=== PATIENT | male | born 1940 | race Caucasian/White ===

== ENCOUNTER 2023-05-14 16:10 | Outpatient (CLI) | payer MEDICARE, OTHER, SELFPAY ==
--- NOTE | ~2023-05-14 | XR_ITS ---
EXAMINATION: XR hip BI wo pelvis DATE: 05/14/2023 16:37 INDICATION: Bilateral hip pain TECHNIQUE: Two views of each hip were obtained. COMPARISON: None. FINDINGS: Bone alignment is normal. There is no fracture. There is moderate osteoarthritis of the hip s. Phleboliths are noted in the pelvis. IMPRESSION: 1. Osteoarthritis without acute osseous abnormality. Reviewed, dictated and finalized at location F.
== END 2023-05-14 16:11 | disposition home or self-care (01) ==
LOC: CHSIMG 16:14
PROVIDERS: PCP Internal Medicine; Visit Provider Internal Medicine
DX: M16.0 Bilateral primary osteoarthritis of hip (principal)
CPT/HCPCS: 73521

== ENCOUNTER 2023-05-19 13:20 | Outpatient (CLI) | payer MEDICARE, OTHER, SELFPAY ==
--- NOTE | ~2023-05-19 | XR_ITS ---
EXAMINATION: XR lg joint inject/asp w image DATE: 05/19/2023 14:27 INDICATION: Left hip pain TECHNIQUE: A time-out was performed to verify the patient's name, date of , and procedure to b e performed. The procedure including the risks, benefits, and alternatives was discussed with the pat ient. Risks discussed included bleeding and infection. The patient understood the risks and agreed to proceed. The skin overlying the left hip joint was prepped and draped in usual sterile fashion. An esthetic was administered with 1% lidocaine subcutaneously. A 22 G needle was advanced under fluoros copic guidance into the joint. Injection of 1 mL of Omnipaque 240 confirmed intra-articular position of the needle. Subsequently, injectate consisting of 5 mm a 3:1:1 mixture of 1% lidocaine: 40 mg/mL Kenalog and 4 mg/mL dexamethasone for a total dosage of 40 mg Kenalog and 4 mg dexamethasone was ins tilled. Washout of contrast was seen confirming intra-articular administration. The needle was remove d and the entry site was cleaned and dressed. There were no immediate complications. Fluoroscopy exp osure time was 0.1 minutes. The total number of images was 2. Total DAP was 0.614 Gycm^2 FINDINGS: Real-time fluoroscopy demonstrates the needle in the left hip joint. Patient's pain prior t o procedure:04/28. Patient's pain following the procedure: 02/26. IMPRESSION: 1. Successful left hip joint injection of local anesthetic and steroid with minimal decrease in the p atient's presenting pain. Reviewed, dictated and finalized at location A. IMPRESSION: 1. Successful left hip joint injection of local anesthetic and steroid with min imal decrease in the patient's presenting pain.
== END 2023-05-19 13:21 | disposition home or self-care (01) ==
LOC: ANHIMG 13:22
PROVIDERS: PCP Internal Medicine; Visit Provider Internal Medicine
DX: M25.552 Pain in left hip (principal)
CPT/HCPCS: 20610; 77002; J1100; J3301; Q9966

== ENCOUNTER 2023-06-30 15:46 | Outpatient (CLI) | payer MEDICARE, OTHER, SELFPAY ==
--- NOTE | ~2023-06-30 | XR_ITS ---
EXAM: XR knee LT 3V DATE: 06/30/2023 16:30 HISTORY: left knee pain FOR AWHILE / NO TRAUMA . COMPARISON: None available. FINDINGS: Decreased mineralization. No fracture or dislocation. No lytic or blastic lesion. Moderate medial joint space narrowing. Mild tricompartmental osteophytosis. Quadriceps and patellar tendon en thesopathy. No erosion or periosteal change. Vascular calcifications. IMPRESSION: Tricompartmental left knee osteoarthritis, moderate in the medial compartment. Reviewed, dictated and finalized at location K. ATER IMPRESSION: Tricompartmental left knee osteoarthritis, moderate in the medial c ompartment.
== END 2023-06-30 15:47 | disposition home or self-care (01) ==
LOC: CHSIMG 15:50
PROVIDERS: PCP Internal Medicine; Visit Provider Internal Medicine
DX: M17.12 Unilateral primary osteoarthritis, left knee (principal); M25.562 Pain in left knee; M25.552 Pain in left hip
CPT/HCPCS: 73562

== ENCOUNTER 2023-07-03 16:03 | Emergency (ER) | payer MEDICARE, OTHER, SELFPAY ==
[2023-07-03] VITALS (22 sets, daily range): BP systolic 134–171; BP diastolic 41–73; PULSE 33–48; RESP 13–20; TEMP 37.1; O2SAT 90–96
--- NOTE | ~2023-07-03 | XR_ITS ---
EXAMINATION: XR chest 1V portable DATE: 07/03/2023 16:52 INDICATION: Bradycardia. Lightheadedness. TECHNIQUE: A single frontal view of the chest was obtained. COMPARISON: None. FINDINGS: There is no pneumonia, pleural effusion, or pneumothorax. Cardiomegaly is noted. IMPRESSION: 1. Cardiomegaly. Reviewed, dictated and finalized at location A. E OPTIC CABLE SPLICER IMPRESSION: 1. Cardiomegaly.
[2023-07-03] MEDS: ATROPINE SULFATE 1 MG/10 ML SYRINGE IV PUSH ×3 (16:18→16:50)
--- NOTE | 2023-07-03 16:24 | ECG_ITS ---
Measurements Intervals [place] Rate: 35 P: NC: 0 QRS: -35 QRSD: 150 T: 88 QT: 546 QTc: 422 Interpretive Statements SINUS RHYTHM WITH COMPLETE HEART BLOCK LEFT AXIS DEVIATION [QRS AXIS < -30] INTRAVENTRICULAR CONDUCTION DELAY [130+ ms QRS DURATION] LEFT VENTRICULAR HYPERTROPHY ABNORMAL ECG WARNING: DATA QUALITY MAY AFFECT INTERPRETATION NO PREVIOUS ECG AVAILABLE FOR COMPARISON Electronically Signed On 07-04-2023 7:45:50 MANAGER TECHNICAL SALES by Mike Bradford M.D.
--- NOTE | 2023-07-03 16:29 | ED.ARRPALP ---
HPI - Arrhythmia/Palpitations General Chief Complaint: Arrhythmia/Palpitations Stated Complaint: low heart rate Time Seen by Provider: 07/03/23 16:24 Source: patient Related Data Home Medications Medication Instructions Recorded Confirmed carvedilol 3.125 mg tablet 3.125 mg PO BID 07/03/23 07/03/23 losartan 100 1 tablet PO DAILY 07/03/23 07/03/23 mg-hydrochlorothiazide 12.5 mg tablet lovastatin 40 mg tablet 40 mg PO DAILY 07/03/23 07/03/23 mirabegron 25 mg tablet,extended 25 mg PO DAILY 07/03/23 07/03/23 release 24 hr (Myrbetriq) Allergies Allergy/AdvReac Type Severity Reaction Status Date / Time No Known Allergies Allergy Verified 07/03/23 16:32 Course Reevaluation(s) Reevaluation #1: Patient's HR was in the low 30s, he was given in around 10 min increments of atropine in 1mg dosage for a total of 3mg, and had no change. EKG showed afib w/slow ventricular response, intraventricular conduction delay, prob lateral myocardial infarction age indeterminate. Date: 07/03/23 Time: 16:30 Reevaluation #2: Dopamine was prepped in case patient's HR was to decline any further. Called [facility] and awaited for their response.r Date: 07/03/23 Time: 16:40 Reevaluation #3: Spoke to summer law associate Dr. Bradford about patient about treatment he said to wait on the dopamine and keep patient in bed and transfer to [facility] for admitting and further treatment. Date: 07/03/23 Time: 17:00 Additional Reevaluation(s): Patient's HR did decline to 29 started dopamine drip at 5mcg/kg/min. HR returned to upper 30s on the dopamine. Patient was stable and ready for transfer. Kept dopamine drip at initial starting dosage Vital Signs Vital signs: Vital Signs Temperature 98.7 F 07/03/23 16:05 Pulse Rate 36 L 07/03/23 16:05 Respiratory Rate 20 07/03/23 16:05 Pulse Oximetry 95 07/03/23 16:05 Oxygen Delivery Room Air 07/03/23 16:05 Temperature 98.7 F 07/03/23 16:05 Pulse Rate 38 L 07/03/23 18:30 Respiratory Rate 20 07/03/23 18:45 Blood Pressure 154/50 H 07/03/23 18:45 Pulse Oximetry 92 07/03/23 18:45 Oxygen Delivery Room Air 07/03/23 18:45 Transfer Transfered to: [place] Transportation: [facility] Transfer rationale: Bradycardia Accepting physician: Dr. Kellogg Transfer comments: Continue on IV dopamine drip. Per cardiology no transcutaneous pacing. MDM - Arrhythmia/Palpitations Lab Data 07/03/23 16:24 07/03/23 16:24 Labs: Lab Results 07/03/23 Range/Units 16:24 WBC 9.8 (4.8-10.8) K/mm3 RBC 4.00 L (4.70-6.10) M/mm3 Hgb 11.9 L (12.4-15.3) g/dL Hct 36.8 L (37.0-46.0) % MCV 92.0 (78.0-102.0) fL MCH 29.8 (27.0-31.0) pg MCHC 32.3 (32.0-36.0) g/dL RDW 12.8 (11.6-14.4) % Plt Count 208 (150-420) K/mm3 MPV 10.5 (8.7-11.0) fl Immature Gran % (Auto) 0.7 H (0.0-0.0) % Neut % (Auto) 77.8 H (50.0-70.0) % Lymph % (Auto) 12.9 L (18.0-42.0) % Hardeman % (Auto) 7.1 (2.0-11.0) % Eos % (Auto) 1.2 (1.0-6.0) % Baso % (Auto) 0.3 (0.0-1.0) % Lymph # (Auto) 1.27 (1.10-4.50) K/mm3 Hardeman # (Auto) 0.70 (0.10-0.90) K/mm3 Eos # (Auto) 0.12 (0.02-0.50) K/mm3 Baso # (Auto) 0.03 (0.00-0.10) K/mm3 Abs Immat Gran (auto) 0.07 H (0.00-0.00) K/mm3 Absolute Neuts (auto) 7.6 H (1.7-7.2) K/mm3 Absolute Nucleated RBC 0.00 (0.00-0.00) K/mm3 Nucleated RBC % 0.0 (0-0.0) % PT 10.6 (9.50-12.10) Seconds INR 1.0 APTT 25.8 (23.90-30.70) SEC D-Dimer 0.88 H* (0.19-0.50) mg/L Sodium 131 L (136-145) mmol/L Potassium 4.6 (3.5-5.1) mmol/L Chloride 96 L (98-108) mmol/L Carbon Dioxide 30 (21-32) mmol/L Anion Gap 5 L (8-16) mmol/L BUN 43 H (7-18) mg/dL Creatinine 1.52 H (0.70-1.30) mg/dL Estim Creat Clear Calc 37 ml/min Estimated GFR 44 L (59 - ) Glucose 203 H (70-99) mg/dL Calculated Osmolality 288 (285-295) mOsm/kg Calcium 9.0 (8.5-10.1) mg/dL Total Bilirubin 0.4 (0.00-1.00
[2023-07-03 16:33] LABS: Basophils Absolute Auto 0.03 K/mm3 (0.00-0.10); Basophils Percent Auto 0.3 % (0.0-1.0); Eosinophils Absolute Auto 0.12 K/mm3 (0.02-0.50); Eosinophils Percent Auto 1.2 % (1.0-6.0); Hematocrit 36.8 % (37.0-46.0); Hemoglobin 11.9 g/dL (12.4-15.3); Immature Granulocyte Absolute 0.07 K/mm3 (0.00-0.00); Immature Granulocyte Percent A 0.7 % (0.0-0.0); Lymphocytes Absolute Auto 1.27 K/mm3 (1.10-4.50); Lymphocytes Percent Auto 12.9 % (18.0-42.0); Mean Corpuscular HGB Conc 32.3 g/dL (32.0-36.0); Mean Corpuscular Hemoglobin 29.8 pg (27.0-31.0); Mean Platelet Volume 10.5 fl (8.7-11.0); Monocytes Percent Auto 7.1 % (2.0-11.0); Neutrophils Absolute Auto 7.6 K/mm3 (1.7-7.2); Neutrophils Percent Auto 77.8 % (50.0-70.0); Platelet Count Result 208 K/mm3 (150-420); Red Cell Distribution Width 12.8 % (11.6-14.4); White Blood Count 9.8 K/mm3 (4.8-10.8)
[2023-07-03 16:45] LABS: Partial Thromboplastin Time 25.8 SEC (23.90-30.70); Prothrombin Time 10.6 Seconds (9.50-12.10)
[2023-07-03 16:46] LABS: D Dimer 0.88 mg/L (0.19-0.50)
[2023-07-03 16:54] LABS: Alanine Aminotransferase 33 U/L (16-63); Albumin Level 3.5 g/dL (3.4-5.0); Alkaline Phosphatase 73 U/L (46-116); Anion Gap 5 mmol/L (8-16); Aspartate Amino Transferase 17 U/L (15-37); Bilirubin,Total 0.4 mg/dL (0.00-1.00); Blood Urea Nitrogen 43 mg/dL (7-18); Carbon Dioxide 30 mmol/L (21-32); Chloride 96 mmol/L (98-108); Estimated CRCL calculation 37 ml/min; Estimated Glomerular Filt Rate 44; Glucose 203 mg/dL (70-99); NT Pro B Type Natriuretic Pept 866 pg/mL (0-450); Osmolality Calculated 288 mOsm/kg (285-295); Potassium 4.6 mmol/L (3.5-5.1); Sodium 131 mmol/L (136-145); Total Protein 6.5 g/dL (6.4-8.2); Troponin I 22.6 ng/L (0.00-60.4)
[2023-07-03] MEDS: DOPamine 400 MG/D5W 250 ML 400 MG/250 ML BAG 16.88 MG IV CONT (17:18)
--- NOTE | 2023-07-03 18:49 | PC.NURSE ---
[id number] attempted to call report to [facility]u [facility]. awaiting call back. pt resting per cot, no complaints voiced. call najera in reach
== END 2023-07-03 19:29 | disposition short-term general hospital (02) ==
PROVIDERS: Emergency Provider Family Medicine; PCP Internal Medicine
DX: I48.91 Unspecified atrial fibrillation (principal); R00.1 Bradycardia, unspecified
CPT/HCPCS: 36415; 71045; 80053; 83880; 84484; 85025; 85380; 85610; 85730; 93005; 96365; 96366; 96375; 96376; 99285; J0461; J1265

== ENCOUNTER 2023-07-03 20:52 | Inpatient (IN) | payer MEDICARE, OTHER, SELFPAY ==
--- NOTE | ~2023-07-03 | XR_ITS ---
EXAMINATION: XR chest 2V DATE: 07/07/2023 12:49 INDICATION: 24 hours postpacemaker insertion TECHNIQUE: PA and lateral views of the chest are obtained. COMPARISON: 07/06/2023 FINDINGS: The lungs are free of acute opacities. No pleural effusion or pneumothorax. Cardiomegaly is noted. There are bridging osteophytes at multiple levels in the spine, consistent with diffuse idiop athic skeletal hyperostosis (DISH). A dual-lead cardiac pacemaker of the left chest wall ends with le ads in expected locations. IMPRESSION: 1. No acute cardiopulmonary abnormality. 2. Cardiomegaly. Reviewed, dictated and finalized at location L. [employer]
--- NOTE | ~2023-07-03 | US_ITS ---
US renal BI 07/05/2023 12:35 Procedure: Realtime transabdominal ultrasound of the kidneys and bladder. Indication: Renal failure Comparison: No prior studies for comparison. Findings: Renal echotexture is normal bilaterally without hydronephrosis, or renal calculus. There is a hypoechoic mass measuring 1.9 cm and the left kidney which may represent a cyst, although there ar e low level internal echoes. Correlation with CT or MRI without and with contrast recommended. The ri ght kidney measures 10.6 cm and left kidney measures 11.1 cm. Bladder is unremarkable. Impression: 1: Hypoechoic 1.9 cm left renal mass. Correlation with CT or MRI without and with contrast recommende d. Reviewed, dictated and finalized at location A. T TENDER Impression: 1: Hypoechoic 1.9 cm left renal mass. Correlation with CT or MRI without and wi th contrast recommended.
--- NOTE | ~2023-07-03 | XR_ITS ---
EXAMINATION: XR chest 1V portable INDICATION: Pacemaker insertion TECHNIQUE: Portable AP chest at 1250 hours COMPARISON: 07/03/2023 FINDINGS: There is been interval insertion of a dual lead pacemaker of the left chest wall which ends with its leads in expected position. No pneumothorax is identified cardiomegaly is noted. The lungs are free of acute opacities. There is no pleural effusion. IMPRESSION: 1. Dual-lead left pacemaker insertion. 2. Cardiomegaly. Reviewed, dictated and finalized at location B. ERIOLOGIST SOIL
--- NOTE | 2023-07-03 19:54 | PC.NURSE ---
This patient, Tanvir Singh, was admitted to Intensive Care Unit-3. Patient/family oriented to hospital policies and general routines including ID bracelet, bed and alarms, visiting hours, pain management, procedures, bathroom and other care routines, personal items, smoking policy, room service/diet, and visiting hours. Information on how to activate the [place] Team has been discussed. Patient/Family are encouraged to report perceived risks to care and to ask questions if they do not understand what they are told or what they should do.
[2023-07-03 20:00] VITALS: BP 109/42; PULSE 37; PULSE 77; RESP 32; TEMP 36.6; O2SAT 94
[2023-07-03 20:05] VITALS: BMI 29.0
--- NOTE | 2023-07-03 20:07 | ECG_ITS ---
Measurements Intervals [place] Rate: 34 P: 60 CO: 248 QRS: 45 QRSD: 152 T: 99 QT: 614 QTc: 468 Interpretive Statements SINUS BRADYCARDIA WITH SECOND-DEGREE AV BLOCK MOBITZ TYPE 2 LEFT BUNDLE BRANCH BLOCK [120+ ms QRS DURATION, 80+ ms Q/S IN V1/V2, 85+ ms R IN I/aVL/V5/V6] ABNORMAL ECG COMPARED TO ECG 07/03/2023 16:33:55 PREVIOUS ECG WAS THIRD-DEGREE AV BLOCK Electronically Signed On 07-04-2023 7:37:05 TEST FACILITY ENGINEER by Mike Bradford M.D.
--- NOTE | 2023-07-03 21:53 | PM.IMHP ---
H&P: HPI History of Present Illness Date/Time: 07/03/23 20:30 Chief Complaint: Slow heart rate Narrative: 83-year-old male with past medical history of essential hypertension, urge urinary incontinence and hyperlipidemia who presented to the ER at [place] with bradycardia. The patient reports that his primary care doctor started him on Coreg a. On review of external med rec in looks like the patient was started on Coreg in November. He quit taking the medication shortly thereafter when he had a syncopal episode. He stated that he was started on the medication by his primary care physician due to his heart rate being irregular. He had been checking his blood pressure on his blood pressure cuff and his heart rate was low. When he followed up with his primary care physician in March is primary care physician cut his Coreg in half to 3.125 mg. Patient went back to taking the Coreg and has been taking it twice daily since then. Since he was restarted on the medication he has been having increased weakness. He reported that he used to work out on his exercise bike to the equivalent of up to 5 miles at a time. He never had any shortness of breath or chest pain with this activity. But he started having hip pain after his fall and this was followed by knee pain and subsequently has not been able to ride his bike since then. He reports that the hip pain is more in his area of his ischial tuberosity. He the outpatient x-rays which demonstrated out the or arthritis. He was started on tramadol for the pain but has had some associated constipation. He denies any other changes in his medications. He denies any orthopnea, lower extremity swelling or paroxysmal nocturnal dyspnea. He has not had any cough or congestion or chest heaviness. Today he checked his blood pressures in notice heart rate was in the 30s. He called his friend who has a history of heart problems and requested that he can not drive him to the ER. On arrival to the ER at [place] the patient's heart rate was in the low 30s. He was given 3 doses of atropine with no change in his heart rate. The ER provider felt the patient's EKG was consistent with AFib with a slowed ventricular response but on my review of the EKG is his is more consistent with a third-degree heart block. The patient was started on dopamine at the outside hospital with improvement in his heart rate to low 30s. Patient was otherwise asymptomatic. He arrived to our facility on the dopamine in his heart rate was ranging between 30 and 42. His rhythm was flipping between third-degree block and a Mobitz type 2. Review of Systems Review of Systems: 12 systems were reviewed with pertinent positives and negatives per HPI. Except as documented in the HPI, all other systems were reviewed and are negative. [facility] Past Medical History Medical History (Updated 07/04/23 @ 05:41 by Xuan Delarosa DO) Borderline diabetes mellitus A1c has never been above 6.5 BPH (benign prostatic hyperplasia) Essential hypertension Hyperlipidemia Urge urinary incontinence Surgical History Surgical History (Updated 07/03/23 @ 21:58 by Xuan Delarosa DO) History of appendectomy As a child History of colonoscopy (08/2016) History of umbilical hernia repair Family History Family History Father Acute myocardial infarction Social History Social History (Updated 07/04/23 @ 05:32 by Xuan Delarosa DO) Social History: [place]. [place]. He and his raised 2 sons and a daughter. 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 He retired from [employer]. He cares for a feral cat at his home. Code status: Full code Surrogate decision maker: Macy Prather Smoking status: Never smoker Alcohol intake: current Alcohol use details: He occasionally drinks alcoh
[2023-07-03 22:00] VITALS: BP 104/42; PULSE 42; RESP 17; O2SAT 95
[2023-07-03 22:05] VITALS: BP 138/46; PULSE 34
[2023-07-03] MEDS: DOPamine 400 MG/D5W 250 ML 400 MG/250 ML BAG 18.19 MG IV CONT (22:05)
[2023-07-04] VITALS (18 sets, daily range): BP systolic 117–165; BP diastolic 44–84; PULSE 33–45; RESP 15–21; TEMP 36–36.7; O2SAT 93–98
--- NOTE | 2023-07-04 | ECHO_ITS ---
Patient Info Name: Tanvir Singh Age: 83 years : 1940 Gender: Male Ht: 72 in Wt: 210 lbs BSA: 2.22 m2 HR: 38 bpm BP: 117 / 45 mmHg Heart Rhythm: Sinus Rhythm Technical Quality: Fair Exam Date: 07/04/2023 9:48 AM Exam Location: Echo Lab Exam Room: ICU3 Patient Status: Inpatient Admit Date: 07/03/2023 Staff Ordering Physician: Xuan Delarosa DO Research Geneticist: Kate Melo RDCS Attending Provider: Jose Swan MD Referring Physician: Isaura BLANCAS; Exam Type: CA echo doppler color flow Study Info Indications I45.5 - Other specified heart block Complete two-dimensional, color flow and Doppler transthoracic echocardiogram is performed. Summary 1. Complete two-dimensional, color flow and Doppler transthoracic echocardiogram is performed. 2. Normal left ventricular and right ventricular size and systolic function. 3. Small amount of mitral and tricuspid valve regurgitation. 4. Complete heart block/high-grade AV block noted. Left Ventricle Left ventricular chamber dimension is normal. Left ventricular systolic function is normal, estimated at 65-70%. The left ventricular diastolic function is grade I diastolic dysfunction. Right Ventricle Right ventricular chamber dimension is normal. Left Atria Left atrial chamber dimension is mildly enlarged. Right Atria Right atrial chamber dimension is normal. Aortic Valve The aortic valve is normal. Pulmonic Valve The pulmonic valve is normal. Mitral Valve The mitral valve has normal leaflets. There is trace mitral valve regurgitation. Tricuspid Valve The tricuspid valve leaflets are normal. There is mild tricuspid valve regurgitation. Pericardium/Pleural The pericardium appears normal. Aorta The aortic root size at the sinus of Valsalva is normal. Left Ventricular Outflow Tract Name Value Normal LVOT 2D LVOT Diameter 2.1 cm LVOT Doppler LVOT Peak Gradient 8 mmHg LVOT Mean Gradient 5 mmHg LVOT VTI 32 cm LVOT VTI/AV VTI Ratio 0.8 LVOT Stroke Volume 115 ml LVOT CO 21.4 l/min LVOT CI 9.7 l/min/m2 Pulmonic Valve Name Value Normal RVOT Doppler RVOT Peak Gradient 4 mmHg PV Doppler PV Peak Gradient 7 mmHg Mitral Valve Name Value Normal MV Doppler MV Decel Estill 197 cm/s2 MV PHT 107 ms MV Area (PHT) 2.1 cm
[2023-07-04 04:37] LABS: Magnesium 2.3 mg/dL (1.6-2.3)
[2023-07-04 05:56] LABS: Thyroid Stimulating Hormone Reflex 0.457 uIU/mL (0.465-4.68)
[2023-07-04] MEDS: DOPamine 400 MG/D5W 250 ML 400 MG/250 ML BAG 18.19 MG IV CONT ×2 (06:15→20:01)
[2023-07-04 06:17] LABS: Hemoglobin A1C 6.9 % (<5.7)
[2023-07-04 06:36] LABS: Anion Gap 10 mmol/L (8-16); Blood Urea Nitrogen 51 mg/dL (9-20); Calcium 9.5 mg/dL (8.4-10.2); Carbon Dioxide 25 mmol/L (22-30); Chloride 98 mmol/L (98-107); Estimated CRCL calculation 38 ml/min; Estimated Glomerular Filt Rate 45; Glucose 155 mg/dL (65-110); Potassium 4.4 mmol/L (3.4-5.0); Sodium 133 mmol/L (137-145)
[2023-07-04 06:43] LABS: Hematocrit 38.3 % (42.0-52.0); Hemoglobin 12.6 g/dL (14.0-18.0); Mean Corpuscular HGB Conc 32.9 g/dl (32-36); Mean Corpuscular Hemoglobin 29.5 pg (26-34); Mean Corpuscular Volume 89.7 fl (80-100); Platelet Count Result 213 k/mm3 (150-375); Red Blood Count 4.27 M/mm3 (4.6-6.20); Red Cell Distribution Width 13.1 % (11.5-14.5); White Blood Count 11.6 K/mm3 (4.5-10.0)
--- NOTE | 2023-07-04 08:35 | PM.CNCAR ---
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 He is unknown to me prior to this encounter. He describes an episode of syncope about 9 months ago as described above. He came to the emergency room himself yesterday did simply because he noticed his heart rate to to be slow on a pulse oximeter device. He is not having any long pauses or immediate symptomatic bradycardia. He is not having any ventricular arrhythmias as result of this. He was placed on low-dose of dopamine in the emergency room yesterday and transferred here for further evaluation. Implantation of a dual-chamber pacemaker is clearly indicated in was recommended at this time. I discussed the procedure, the details and the risks with the patient he is agreeable to proceed. Since he is stable I will plan to do this on Thursday. He will of course remain at bedrest until last as we do not wish him to be ambulating well he is bradycardic for his safety. Mike Bradford MD [facility] History of Present Illness History of Present Illness Consult date/time: 07/04/23 08:35 Reason For Visit: Symptomatic Bradycardia Narrative: This is a 83-year-old man I am seeing at the request of the hospitalist's because of bradycardia. The patient is unknown to me prior to this encounter. He is a gentleman who went to the emergency room in [place] yesterday evening because he took his pulse at home and noticed that it was in the 30s. I was questioning the patient as to why he was checking his pulse. He states that a friend had a pulse oximeter and he decided to check his oxygen saturation and the device reported his heart rate to be in the 30s. He is not having any other immediate symptoms such as syncope, presyncope he does have some occasional lightheadedness but this was not of any great concern to him. He does not report any knowledge of previous cardiac problems. There is no previous records in our electronic chart according to this gentleman. He states that he was seen by his primary care physician last winter he thinks in August and there was some concern about the appearance of his electrocardiogram. I do not have that tracing available to me at the time of this consultation. He states he was placed on a low dose of carvedilol at that time. His current medication lists list carvedilol at 3.125 mg q.12 hours. I was called through the exchange and spoke to the ER doctor at the referring hospital in [place] last evening about the situation I was told over the phone that the patient had atrial fibrillation with slow ventricular response and of course accepted him here to [facility] for evaluation. Upon arrival today and inspecting his electrocardiograms the actual diagnosis is high-grade AV block with left bundle branch block. He has electrocardiograms that appear to vary between third-degree heart block and Mobitz type 2 second-degree AV block. He otherwise is comfortable this morning he is watching television as and the room to see him and offers no other complaints. He did state that he had a syncopal episode back in September of this year at his home. His about 5 years ago so he lives alone. The episode was not witnessed and he has no idea how long it took before he regained consciousness. He did describe sustaining a contusion on his head because of the fall. He did not seek medical attention at that time. Review of Systems Constitutional: Constitutional: Reports no additional constitutional complaints Eyes: Eyes: Reports no additional eye complaints ENT: Reports system reviewed and no additional complaints, except as documented Cardiovascular: Cardiovascular: Reports no additional cardiovascular complaints Respiratory: Respiratory: Reports no additional respir
--- NOTE | 2023-07-04 09:04 | WPDCNINT ---
Assessment and Plan Assessment and plan (1) Third degree heart block: Code(s): I44.2 - Atrioventricular block, complete Status: Acute Assessment and Plan: Patient presented with third-degree AV block with adequate blood pressure and no other symptoms. Patient was evaluated by Cardiology and plan to place permanent pacemaker. Holding on transvenous temporary pacemaker at this time. Patient is on 5 mics of dopamine which will be continued for now can be weaned off Echo ordered ICU telemetry monitoring (2) Hyperglycemia due to diabetes mellitus: Code(s): E11.65 - Type 2 diabetes mellitus with hyperglycemia Status: Acute Assessment and Plan: Patient has history of borderline diabetes and is currently not on any treatment as an outpatient. Would start patient on sliding scale insulin while inpatient (3) Elevated serum creatinine: Code(s): R79.89 - Other specified abnormal findings of blood chemistry Status: Acute Assessment and Plan: Patient has elevated creatinine 1.5. Baseline creatinine is unknown I do not have any records. Patient does has history of diabetes and hypertension which may explain a chronic kidney disease. Check urine electrolytes CK and renal ultrasound Obtain records from primary care physician Will give cautious amount of IV fluids (4) Essential hypertension: Code(s): I10 - Essential (primary) hypertension Status: Acute Assessment and Plan: Hold antihypertensives at this time (5) Hyperlipidemia: Code(s): E78.5 - Hyperlipidemia, unspecified Status: Acute Assessment and Plan: Continue statin Plan DVT prophylaxis -Lovenox Nutrition - heart healthy diet Code Status - Full Code Case discussed with Dr. Bradford from Cardiology Total Critical Care Time - 30 minutes Due to a high probability of clinically significant, life threatening deterioration, the patient required my highest level of preparedness to intervene emergently and I personally spent this critical care time directly and personally managing the patient. This critical care time included obtaining a history; examining the patient; pulse oximetry; ordering and review of studies; arranging urgent treatment with development of a management plan; evaluation of patient's response to treatment; frequent reassessment; and discussions with other providers. It was exclusive of separately billable procedures and treating other patients and teaching time. Please see Assessment and Plan section and the rest of the note for further information on patient assessment and treatment Nut Grader Consult Note Consult date: 07/04/23 Reason for consult: Complete heart block HPI: Tanvir Singh is a 83 year old male hypertension hyperlipidemia presented to [facility] with chief complaint of low heart rate and pulse rate. Patient was started on Coreg apparently for ectopic beats by his primary care physician. The dose was later reduced to 3.125 in March. He noticed on blood pressure monitoring and pulse ox monitoring at home that his heart rate was in 30s and hence he presented to ER. He denies any syncope dizziness lightheadedness chest pain shortness a breath nausea vomiting. No episode of passing. In ER he was found to be having complete heart block with heart rate in 30s. His blood pressure was adequate. He was started on low-dose dopamine and transferred to [place] ICU. At this time he denies any new complaints and feels fine and would like to get out of bed. Patient is a poor historian and does not have lot of insight into his medical problems and medications he takes. He did admit that he had some urinary symptoms and was planning to see urologist for problem with urination but is not sure if he has prostate hypertrophy. All other systems were reviewed negative Patient on 5 mics of dopamine. Telemetry shows complete heart block in mid 30s blood pressure systolic in
[2023-07-04 09:07] LABS: Creatine Kinase 57 U/L (55-170)
[2023-07-04] MEDS: MIRABEGRON 25 MG ER TABLET PO (09:18)
[2023-07-04] MEDS: LOVASTATIN 20 MG TABLET 40 MG PO (09:18)
[2023-07-04 09:19] LABS: Free T4 Free Thyroxine Reflex 1.15 ng/dL (0.78-2.19)
[2023-07-04] MEDS: LACTATED RINGERS 1,000 ML 100 ML IV CONT (09:21)
[2023-07-04 10:46] LABS: Creatinine Urine 67.6 mg/dL
[2023-07-04 10:47] LABS: Sodium Urine Random 16 meq/L
[2023-07-04 12:01] LABS: Glucose Point of Care 175 mg/dl (65-105)
[2023-07-04 16:04] LABS: Glucose Point of Care 190 mg/dl (65-105)
[2023-07-04 20:10] LABS: Glucose Point of Care 145 mg/dl (65-105)
[2023-07-05] VITALS (50 sets, daily range): BP systolic 102–143; BP diastolic 41–97; PULSE 28–43; RESP 11–26; TEMP 36.5–36.9; O2SAT 88–100
[2023-07-05 03:55] LABS: Hematocrit 35.6 % (42.0-52.0); Hemoglobin 11.7 g/dL (14.0-18.0); Mean Corpuscular HGB Conc 32.9 g/dl (32-36); Mean Corpuscular Hemoglobin 29.3 pg (26-34); Mean Platelet Volume 10.7 fl (7.4-10.4); Platelet Count Result 182 k/mm3 (150-375); Red Cell Distribution Width 12.8 % (11.5-14.5); White Blood Count 11.6 K/mm3 (4.5-10.0)
[2023-07-05 04:21] LABS: Alanine Aminotransferase 43 U/L (6-50); Albumin Level 3.6 g/dL (3.5-5.1); Alkaline Phosphatase 72 U/L (38-126); Anion Gap 7 mmol/L (8-16); Aspartate Amino Transferase 37 U/L (17-59); Bilirubin,Total 0.6 mg/dL (0.2-1.3); Blood Urea Nitrogen 39 mg/dL (9-20); Calcium 9.2 mg/dL (8.4-10.2); Carbon Dioxide 24 mmol/L (22-30); Chloride 105 mmol/L (98-107); Estimated CRCL calculation 55 ml/min; Estimated Glomerular Filt Rate > 60; Glucose 170 mg/dL (65-110); Magnesium 2.3 mg/dL (1.6-2.3); Potassium 4.3 mmol/L (3.4-5.0); Sodium 136 mmol/L (137-145)
[2023-07-05 08:04] LABS: Glucose Point of Care 166 mg/dl (65-105)
[2023-07-05] MEDS: LOVASTATIN 20 MG TABLET 40 MG PO (08:11)
[2023-07-05] MEDS: ENOXAPARIN 40 MG/0.4 ML SYRINGE SUB-Q (08:11)
--- NOTE | 2023-07-05 08:41 | PM.PNCARD ---
Progress Note: A&P Assessment and Plan (1) Third degree heart block: Code(s): I44.2 - Atrioventricular block, complete Status: Acute Plan This is an 83-year-old man with acquired complete heart block who is essentially asymptomatic. Interestingly he did have a syncopal episode a long time ago which likely was a harbinger of this but was not evaluated medically at that time. In any event he is otherwise clinically and hemodynamically stable. Plans are in place for implantation of permanent pacemaker device tomorrow morning. Mike Bradford MD [facility] Subjective Date/time seen: Date of service: 07/05/23 08:41 Interval history: Follow-up visit in this 83-year-old man with: Acquired complete heart block with essentially asymptomatic bradycardia and left bundle branch block. Plans are in place for implantation of permanent pacemaker tomorrow Exam Const: General: comfortable and no acute distress Other: Pleasant elderly gentleman no distress HENMT: Mouth: Yes moist mucous membranes Eyes: Sclera: sclerae normal Neck: Neck: supple and no JVD Resp: Effort & Inspection: normal respiratory effort Auscultation: clear to auscultation bilaterally Cardio: Rate: bradycardic Rhythm: regular rhythm GI: GI Palp: Yes Soft to palpation Auscultation: normal bowel sounds Skin: General skin exam: normal color Neuro: Other: Alert and oriented x3 Extrem: Other: No edema, good distal perfusion Objective Data Vital Signs Vital Signs: Vital Signs - 24 hr 07/04/23 10:00 07/04/23 10:00 07/04/23 11:53 Temperature 36.6 C Pulse Rate 38 L 38 L 35 L Respiratory Rate 19 17 Blood Pressure 165/51 H 149/46 H Pulse Oximetry 95 97 Oxygen Delivery Oxygen Flow Rate 07/04/23 12:00 07/04/23 12:00 07/04/23 14:00 Temperature Pulse Rate 36 L 33 L Respiratory Rate Blood Pressure Pulse Oximetry 98 Oxygen Delivery Nasal Cannula Oxygen Flow Rate 2 07/04/23 14:16 07/04/23 16:00 07/04/23 16:00 Temperature 36.7 C Pulse Rate 33 L 35 L Respiratory Rate 19 15 Blood Pressure 132/44 L 126/66 Pulse Oximetry 97 96 97 Oxygen Delivery Nasal Cannula Oxygen Flow Rate 2 07/04/23 18:59 07/04/23 16:00 07/04/23 18:00 Temperature Pulse Rate 37 L 35 L 37 L Respiratory Rate 15 Blood Pressure 143/44 H Pulse Oximetry 97 Oxygen Delivery Oxygen Flow Rate 07/04/23 20:01 07/04/23 20:00 07/04/23 20:00 Temperature 36.6 C Pulse Rate 45 L 37 L Respiratory Rate 15 Blood Pressure 149/84 H 149/84 H Pulse Oximetry 96 96 Oxygen Delivery Nasal Cannula Oxygen Flow Rate 2 07/04/23 20:00 07/04/23 22:00 07/04/23 22:00 Temperature Pulse Rate 35 L 35 L 35 L Respiratory Rate 20 Blood Pressure 119/57 L Pulse Oximetry 98 Oxygen Delivery Oxygen Flow Rate 07/05/23 00:00 07/05/23 00:00 07/05/23 00:00 Temperature 36.6 C Pulse Rate 30 L 30 L Respiratory Rate 20 Blood Pressure 135/50 L Pulse Oximetry 95 95 Oxygen Delivery Nasal Cannula Oxygen Flow Rate 2 07/05/23 02:00 07/05/23 02:00 07/05/23 04:00 Temperature 36.9 C Pulse Rate 30 L 30 L 31 L Respiratory Rate 17 19 Blood Pressure 128/42 L 129/51 L Pulse Oximetry 99 96 Oxygen Delivery Oxygen Flow Rate 07/05/23 04:00 07/05/23 04:00 07/05/23 06:00 Temperature Pulse Rate 31 L 30 L Respiratory Rate Blood Pressure Pulse Oximetry 99 Oxygen Delivery Nasal Cannula Oxygen Flow Rate 2 07/05/23 06:00 07/05/23 08:01 Temperature 36.5 C Pulse Rate 30 L 31 L Respiratory Rate 16 13 Blood Pressure 131/49 L 138/50 L Pulse Oximetry 97 100 Oxygen Delivery Oxygen Flow Rate Intake/Output Intake/Output: Intake & Output 07/02/23 07/03/23 07/04/23 07/05/23 23:59 23:59 23:59 23:59 Intake Total 2040 720 Output Total 0825 3880 Balance -135 -295 Meds/Results Medications: Active Medications Generic Name Dose
--- NOTE | 2023-07-05 08:57 | WPDINTPN ---
Progress Note: A&P Assessment and Plan (1) Third degree heart block: Code(s): I44.2 - Atrioventricular block, complete Status: Acute Assessment and Plan: Patient presented with third-degree AV block with adequate blood pressure and no other symptoms. Patient was evaluated by Cardiology and plan to place permanent pacemaker. Holding on transvenous temporary pacemaker at this time. Patient is on 5 mics of dopamine which will be weaned off Echo Summary ? 1. Complete two-dimensional, color flow and Doppler transthoracic echocardiogram is performed. ? 2. Normal left ventricular and right ventricular size and systolic function. ? 3. Small amount of mitral and tricuspid valve regurgitation. ? 4. Complete heart block/high-grade AV block noted. ICU telemetry monitoring (2) Hyperglycemia due to diabetes mellitus: Code(s): E11.65 - Type 2 diabetes mellitus with hyperglycemia Status: Acute Assessment and Plan: Patient has history of borderline diabetes and is currently not on any treatment as an outpatient. Continue sliding scale insulin (3) Elevated serum creatinine: Code(s): R79.89 - Other specified abnormal findings of blood chemistry Status: Acute Assessment and Plan: Patient has elevated creatinine 1.5. Baseline creatinine is unknown I do not have any records. Patient does has history of diabetes and hypertension which may explain a chronic kidney disease. Pending renal ultrasound Normal CK Obtain records from primary care physician Creatinine normalized with IV fluids Monitor (4) Essential hypertension: Code(s): I10 - Essential (primary) hypertension Status: Acute Assessment and Plan: Hold antihypertensives at this time (5) Hyperlipidemia: Code(s): E78.5 - Hyperlipidemia, unspecified Status: Acute Assessment and Plan: Continue statin Plan DVT prophylaxis -Lovenox Nutrition - heart healthy diet Code Status - Full Code Case discussed with Dr. Bradford from Cardiology Total Critical Care Time - 30 minutes Due to a high probability of clinically significant, life threatening deterioration, the patient required my highest level of preparedness to intervene emergently and I personally spent this critical care time directly and personally managing the patient. This critical care time included obtaining a history; examining the patient; pulse oximetry; ordering and review of studies; arranging urgent treatment with development of a management plan; evaluation of patient's response to treatment; frequent reassessment; and discussions with other providers. It was exclusive of separately billable procedures and treating other patients and teaching time. Please see Assessment and Plan section and the rest of the note for further information on patient assessment and treatment Subjective Date/time seen: 07/05/23 Overnight events reviewed. Afebrile Continues to be on dopamine infusion Good urine output Tolerating p.o. diet Denies any complaints or any symptoms. All systems were reviewed and were negative Remains in complete heart block with adequate blood pressure Review of Systems Review of Systems: All systems reviewed & are unremarkable except as noted in HPI and below (HPI) Exam Narrative: General: Pt is alert awake and in NAD Lungs/Chest: Trachea central Clear BS B/L, No crackles or wheezing. Cardiac: Bradycardic irregular. Normal S1 S2. No murmurs Circulation: Pedal pulses are intact and symmetrical. Abdomen: Normal bowel sounds.. Soft. NT. ND. Extremities: No clubbing, cyanosis or edema. Warm : Castle in place Neurologic: Follows commands. Moves all 4 extremities PERRL Skin: No Rash Objective Data Vital Signs Vital Signs: Vital Signs - 24 hr 07/04/23 10:00 07/04/23 10:00 07/04/23 11:53 Temperature 36.6 C Pulse Rate 38 L 38 L 35 L Respiratory Rate 19 17 Blood Pressure 165/51 H 149/46 H Pulse Ox
[2023-07-05 11:42] LABS: Glucose Point of Care 184 mg/dl (65-105)
[2023-07-05] MEDS: MIRABEGRON 25 MG ER TABLET PO (16:54)
[2023-07-05 17:53] LABS: Glucose Point of Care 120 mg/dl (65-105)
[2023-07-05 20:47] LABS: Glucose Point of Care 156 mg/dl (65-105)
[2023-07-06] VITALS (14 sets, daily range): BP systolic 112–152; BP diastolic 30–96; PULSE 24–82; RESP 12–20; TEMP 36.5–37.2; O2SAT 94–100
[2023-07-06 04:58] LABS: Hemoglobin 11.6 g/dL (14.0-18.0); Mean Corpuscular HGB Conc 32.2 g/dl (32-36); Mean Corpuscular Hemoglobin 29.6 pg (26-34); Mean Corpuscular Volume 91.8 fl (80-100); Mean Platelet Volume 11.5 fl (7.4-10.4); Platelet Count Result 170 k/mm3 (150-375); Red Blood Count 3.92 M/mm3 (4.6-6.20); Red Cell Distribution Width 13.2 % (11.5-14.5); White Blood Count 9.1 K/mm3 (4.5-10.0)
[2023-07-06 05:10] LABS: Alanine Aminotransferase 39 U/L (6-50); Albumin Level 3.2 g/dL (3.5-5.1); Alkaline Phosphatase 68 U/L (38-126); Anion Gap 4 mmol/L (8-16); Aspartate Amino Transferase 29 U/L (17-59); Bilirubin,Total 0.6 mg/dL (0.2-1.3); Blood Urea Nitrogen 36 mg/dL (9-20); Calcium 9.1 mg/dL (8.4-10.2); Carbon Dioxide 28 mmol/L (22-30); Chloride 106 mmol/L (98-107); Estimated CRCL calculation 50 ml/min; Estimated Glomerular Filt Rate > 60; Glucose 139 mg/dL (65-110); Magnesium 2.4 mg/dL (1.6-2.3); Potassium 4.2 mmol/L (3.4-5.0); Sodium 138 mmol/L (137-145)
[2023-07-06 08:14] LABS: Glucose Point of Care 145 mg/dl (65-105)
--- NOTE | 2023-07-06 09:04 | WPDMODSED ---
Moderate Sedation Note-Pt Data Patient Data Diagnosis: Acquired complete heart block Present Complaint: No complaints other than bradycardia Procedure to be performed/Plan: Implantation of permanent pacemaker Allergies Allergy/AdvReac Type Severity Reaction Status Date / Time No Known Allergies Allergy Verified 07/03/23 20:18 Home Medications Medication Instructions Recorded Confirmed Type carvedilol 3.125 mg tablet 3.125 mg PO BID 07/03/23 07/03/23 History losartan 100 1 tablet PO DAILY 07/03/23 07/03/23 History mg-hydrochlorothiazide 12.5 mg tablet lovastatin 40 mg tablet 40 mg PO DAILY 07/03/23 07/03/23 History mirabegron 25 mg tablet,extended 25 mg PO DAILY 07/03/23 07/03/23 History release 24 hr (Myrbetriq) tramadol 50 mg tablet 50 mg PO Q6H PRN Pain 07/03/23 07/03/23 History Current Medications: Active Medications Acetaminophen (Acetaminophen 325 Mg Tablet) 650 mg PO Q4H PRN PRN Reason: Mild Pain (1-3) or Fever Dextrose (Dextrose 50% 25 Gm/50 Ml Syringe) 12.5 gm IV PUSH PRN PRN; Protocol PRN Reason: Hypoglycemia Enoxaparin Sodium (Enoxaparin 40 Mg/0.4 Ml Syringe) 40 mg SUB-Q DAILY CHEN Last Admin: 07/05/23 08:11 Dose: 40 mg Glucagon (Glucagon For Inj 1 Mg Vial) 1 mg IM PRN PRN; Protocol PRN Reason: Hypoglycemia Glucose (Glucose Oral Gel 15 Gm Of Glucse In 37.5 Gm Tube) 15 gm PO PRN PRN; Protocol PRN Reason: Hypoglycemia Dopamine HCl/Dextrose (Dopamine 400 Mg/D5w 250 Ml) 400 mg in 250 mls @ 0 mls/hr IV CONT .Q0M CHEN Last Infusion: 07/05/23 08:00 Dose: 0 mcg/kg/min, 0 mls/hr Dextrose (Dextrose 5% 1,000 Ml) 1,000 mls @ 100 mls/hr IVPB PRN PRN; Protocol PRN Reason: Hypoglycemia Insulin Aspart (Insulin Aspart (*Bkc) 100 Units/Ml) 3 - 6 units SUB-Q TIDWM CHEN; Protocol Last Admin: 07/06/23 08:16 Dose: Not Given Insulin Aspart (Insulin Aspart (*Bkc) 100 Units/Ml) 1 - 3 units SUB-Q HS [facility]; Protocol Last Admin: 07/05/23 20:49 Dose: Not Given Lovastatin (Lovastatin 20 Mg Tablet) 40 mg PO DAILY [facility] Last Admin: 07/05/23 08:11 Dose: 40 mg Mirabegron (Mirabegron 25 Mg Er Tablet) 25 mg PO DAILY@1730 [facility] Last Admin: 07/05/23 16:54 Dose: 25 mg Perflutren Lipid Microsphere (Perflutren Lipid Microspheres 1.5 Ml Vial Diluted To 10 Ml Total Volume) 0 ml IV PUSH ONCE PRN; Protocol PRN Reason: adequate visualization Stop: 07/07/23 05:28 Tramadol HCl (Tramadol Hcl (*Crx) 50 Mg Tablet) 50 mg PO Q6H PRN PRN Reason: Pain 4-10 Sedation/Anesthesia: No previous sedation/anesthesia problems (including family history). [facility] Past Medical History Medical History (Updated 07/04/23 @ 09:09 by Trenton Moe MD) Borderline diabetes mellitus A1c has never been above 6.5 BPH (benign prostatic hyperplasia) Essential hypertension Hyperlipidemia Urge urinary incontinence Surgical History Surgical History History of appendectomy As a child History of colonoscopy (08/2016) History of umbilical hernia repair Family History Family History Father Acute myocardial infarction Social History Social History Social History: [place]. He and his raised 2 sons and a daughter. 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 He cares for a feral cat at his home. Code status: Full code Surrogate decision maker: Macy Prather Smoking status: Never smoker Alcohol intake: current Alcohol use details: He occasionally drinks alcohol in moderation. Substance use: never Substance use type: does not use Lack of Transportation: No Lack of Food: Never True Current Housing: Decline to Answer Concerned About Future Housing: Decline to Answer Difficulty Paying Gas/Electric Bills: De
--- NOTE | 2023-07-06 09:47 | WPDINTPN ---
Progress Note: A&P Assessment and Plan (1) Third degree heart block: Code(s): I44.2 - Atrioventricular block, complete Status: Acute Assessment and Plan: Patient presented with third-degree AV block with adequate blood pressure and no other symptoms. Patient was evaluated by Cardiology and plan to place permanent pacemaker. Holding on transvenous temporary pacemaker at this time. Dopamine has been weaned off Echo Summary ? 1. Complete two-dimensional, color flow and Doppler transthoracic echocardiogram is performed. ? 2. Normal left ventricular and right ventricular size and systolic function. ? 3. Small amount of mitral and tricuspid valve regurgitation. ? 4. Complete heart block/high-grade AV block noted. ICU telemetry monitoring Plan for permanent pacemaker placement today (2) Hyperglycemia due to diabetes mellitus: Code(s): E11.65 - Type 2 diabetes mellitus with hyperglycemia Status: Acute Assessment and Plan: Patient has history of borderline diabetes and is currently not on any treatment as an outpatient. Continue sliding scale insulin (3) Elevated serum creatinine: Code(s): R79.89 - Other specified abnormal findings of blood chemistry Status: Acute Assessment and Plan: Patient has elevated creatinine 1.5. Baseline creatinine is unknown I do not have any records. Patient does has history of diabetes and hypertension which may explain a chronic kidney disease. Renal ultrasound 1: Hypoechoic 1.9 cm left renal mass. Correlation with CT or MRI without and with contrast recommended. Normal CK Creatinine normalized with IV fluids Monitor (4) Essential hypertension: Code(s): I10 - Essential (primary) hypertension Status: Acute Assessment and Plan: Hold antihypertensives at this time (5) Hyperlipidemia: Code(s): E78.5 - Hyperlipidemia, unspecified Status: Acute Assessment and Plan: Continue statin (6) Renal mass: Code(s): N28.89 - Other specified disorders of kidney and ureter Status: Acute Assessment and Plan: Renal ultrasound showed1: Hypoechoic 1.9 cm left renal mass. Correlation with CT or MRI without and with contrast recommended. Likely a cyst but further workup once cardiac issues have been sorted out Plan DVT prophylaxis -Lovenox held for procedure Nutrition -npo. for procedure Code Status -full code Total Critical Care Time - 30 minutes Due to a high probability of clinically significant, life threatening deterioration, the patient required my highest level of preparedness to intervene emergently and I personally spent this critical care time directly and personally managing the patient. This critical care time included obtaining a history; examining the patient; pulse oximetry; ordering and review of studies; arranging urgent treatment with development of a management plan; evaluation of patient's response to treatment; frequent reassessment; and discussions with other providers. It was exclusive of separately billable procedures and treating other patients and teaching time. Please see Assessment and Plan section and the rest of the note for further information on patient assessment and treatment Subjective Date/time seen: 07/06/23 He continues to be in complete heart rate close to 30 he is clearly asymptomatic as he denies any complaints whatsoever. He states he feels fine and is eager to get his pacemaker placed and go home. Patient denies fever, chest pain, shortness of breath, cough, nausea vomiting, abdominal pain,, diarrhea, headache or constipation. All other systems were reviewed and were negative He is on room air Tolerating p.o. diet Review of Systems Review of Systems: All systems reviewed & are unremarkable except as noted in HPI and below (HPI) Exam Narrative: General: Pt is alert awake and in NAD Lungs/Chest: Trachea central Clear BS B/L, No crackles or wheezing. Cardiac
--- NOTE | 2023-07-06 10:14 | PC.NURSE ---
Cardiac roofing laborer nurse, Mable, here to transport patient to roofing laborer.
--- NOTE | 2023-07-06 12:03 | ECG_ITS ---
Measurements Intervals [place] Rate: 69 P: 42 MI: 197 QRS: -53 QRSD: 202 T: 104 QT: 513 QTc: 551 Interpretive Statements ATRIAL SENSED eLECTRONIC VENTRICULAR PACEMAKER NO FURTHER INTERPRETATION POSSIBLE COMPARED TO ECG 07/03/2023 20:12:17 ELECTRONIC VENTRICULAR PACED RHYTHM HAS REPLACED COMPLETE HEART BLOCK Electronically Signed On 07-06-2023 17:22:36 [employer] by Conner Solano M.D.
--- NOTE | 2023-07-06 12:05 | WPDCARDPROC ---
Cardiac Cath Procedure Note Date of procedure:: 07/06/23 Performing physician:: Mike Bradford MD Indication:: symptomatic bradycardia with acquired complete heart block Brief clinical history:: this is an 83-year-old man who was admitted to the hospital with symptomatic bradycardia his electrocardiogram demonstrated complete heart block with left bundle branch block. He has no previous cardiovascular history. The implantation of permanent dual-chamber pacemaker device has been recommended for treatment of this Procedure Procedure performed:: implantation of permanent Biotronik dual-chamber pacemaker Sedation/Medication given:: Versed 2 Access site:: left subclavian vein Estimated blood loss:: 25 cc Procedure note:: patient was brought to the cardiac catheterization lab in the postabsorptive state where the left anterior chest wall was prepped and draped in the usual fashion. Anesthesia was given inferior to the clavicle with 1% lidocaine 20 cc infiltrated locally. The patient have received intravenous Ancef for antibiotic prophylaxis. An incision was then made inferior to the clavicle from midclavicular line to the deltopectoral groove. Electrocautery was used to provide cutaneous hemostasis. Sharp and blunt dissection was then used to separate the subcutaneous tissue to the level of the prepectoral fascia. A blunt dissection was used to create a pacemaker pocket inferior to the incision and the pocket was packed with an antibiotic soaked 4 x 4. Attention was then turned venous access. Using the 6 Burmese pacemaker SafeSheath kits 2 separate punctures were made of the left subclavian vein in the guidewires were placed under fluoroscopic visualization to the level of right atrium. Using the safe sheaths the 2 pacemaker leads detailed below were then advanced into the venous circulation and a placed into the right atrium. The sheaths were peeled away. Attention was then turned to positioning the ventricular lead. The straight stylet was withdrawn and I used a 3 cc syringe to form a J-tip stylet T steer the lead through the right ventricle out to the PA position. The lead was then withdrawn and placed into the right ventricular free wall near the apex. The pacing and sensing performance was appropriate the lead was secured into position by stenting the fixation screw and appropriate pacing and sensing performed was demonstrated. Following pacing very intrinsic rhythm was essentially extinguished and he then became pacemaker dependent. Attention was then turned to the atrial lead position. A preformed atrial J stylet was placed into the lead was maneuvered into the right atrial appendage position. The fixation screw was deployed and upon withdrawal of the stylet the lead tip was fixed into position. The lead lead was then tested with appropriate pacing and sensing for what is demonstrated. A 10 volts stimulus failed to show any evidence of extracardiac stimulation in either lead. Following this the atrial lead was connected to the pacemaker generator described below. Next the ventricular lead was connected to the generator described below the entire assembly was then placed into the newly created pocket after the retained sponge was removed. The skin was then closed in layers using 3-0 Vicryl in interrupted fashion for the subcutaneous tissue and 4-0 Vicryl in a running subcuticular fashion for the skin. An Aquacel dressing was applied the procedure was well tolerated and uncomplicated. He left the catheterization lab in good condition with no evidence of any procedural complication. The left arm will be placed in an immobilizer. Findings:: Patient received a Biotronik dual-chamber pacemaker model Amvia Edge [id number]. device is programmed in the DDD mode lower rate limit 60 upper rate limit 120. The atrial lead is a Biotronik screw-in bipolar lead model Solia [id number]. serial number [id number]. the P-wave sense
--- NOTE | 2023-07-06 12:16 | PC.NURSE ---
Pt. back from carpenter labor supervisor via bed and bedside report received from Mable RN. Arm immobilizer applied and activity and post-pacemaker instructions given to patient.
[2023-07-06] MEDS: SODIUM CHLORIDE 0.9% IV 1,000 ML 50 ML IV CONT (13:02)
[2023-07-06] MEDS: LOVASTATIN 20 MG TABLET 40 MG PO (13:37)
[2023-07-06] MEDS: ceFAZolin 1 GM/NS 50 ML 1 GM/50 ML BAG IVPB ×2 (16:27→22:12)
[2023-07-06] MEDS: MIRABEGRON 25 MG ER TABLET PO (17:50)
--- NOTE | 2023-07-06 18:07 | PM.IMPN ---
Progress Note: A&P Assessment and Plan (1) Third degree heart block: Code(s): I44.2 - Atrioventricular block, complete Status: Acute Assessment and Plan: Patient presented with third-degree AV block with adequate blood pressure and no other symptoms. Patient was evaluated by Cardiology and now status post pulmonary and pacemaker implantation 07/06/2023. Echo Summary ? 1. Complete two-dimensional, color flow and Doppler transthoracic echocardiogram is performed. ? 2. Normal left ventricular and right ventricular size and systolic function. ? 3. Small amount of mitral and tricuspid valve regurgitation. ? 4. Complete heart block/high-grade AV block noted. (2) Hyperglycemia due to diabetes mellitus: Code(s): E11.65 - Type 2 diabetes mellitus with hyperglycemia Status: Acute Assessment and Plan: Patient has history of borderline diabetes and is currently not on any treatment as an outpatient. Continue sliding scale insulin (3) Elevated serum creatinine: Code(s): R79.89 - Other specified abnormal findings of blood chemistry Status: Acute Assessment and Plan: Patient has elevated creatinine 1.5. Baseline creatinine is unknown I do not have any records. Patient does has history of diabetes and hypertension which may explain a chronic kidney disease. Renal ultrasound 1: Hypoechoic 1.9 cm left renal mass. Correlation with CT or MRI without and with contrast recommended. Normal CK Creatinine normalized with IV fluids Monitor (4) Essential hypertension: Code(s): I10 - Essential (primary) hypertension Status: Acute Assessment and Plan: Hold antihypertensives at this time (5) Hyperlipidemia: Code(s): E78.5 - Hyperlipidemia, unspecified Status: Acute Assessment and Plan: Continue statin (6) Renal mass: Code(s): N28.89 - Other specified disorders of kidney and ureter Status: Acute Assessment and Plan: Renal ultrasound showed1: Hypoechoic 1.9 cm left renal mass. Correlation with CT or MRI without and with contrast recommended. Likely a cyst but further workup once cardiac issues have been sorted out Plan DVT prophylaxis -Lovenox held for procedure Nutrition -npo. for procedure Code Status -full code Subjective Date/time seen: 07/06/23 18:07 Interval history: Patient moved out of the ICU today. Feeling good. Blood pressure stable. Received pacemaker implantation this a.m.. Review of Systems Review of Systems: All systems reviewed & are unremarkable except as noted in HPI and below (HPI) Exam Narrative: General: Pt is alert awake and in NAD Lungs/Chest: Trachea central Clear BS B/L, No crackles or wheezing. Cardiac: Regular rate rhythm paced normal S1 S2. No murmurs left chest wall with dressing in place Circulation: Pedal pulses are intact and symmetrical. Abdomen: Normal bowel sounds.. Soft. NT. ND. Extremities: No clubbing, cyanosis or edema. Warm : Castle in place Neurologic: Follows commands. Moves all 4 extremities PERRL Skin: No Rash Objective Data Vital Signs Vital Signs: Vital Signs - 24 hr 07/05/23 20:00 07/05/23 20:30 07/05/23 20:30 Temperature 97.8 F Pulse Rate 28 L 30 L 30 L Respiratory Rate 21 H 21 H Blood Pressure 134/53 L Pulse Oximetry 96 96 Oxygen Delivery Room Air 07/05/23 22:00 07/05/23 22:00 07/06/23 00:00 Temperature Pulse Rate 28 L 28 L 29 L Respiratory Rate 20 Blood Pressure 102/41 L Pulse Oximetry 97 Oxygen Delivery 07/06/23 00:00 07/06/23 00:00 07/06/23 02:33 Temperature 97.8 F Pulse Rate 30 L 30 L 34 L Respiratory Rate 17 17 Blood Pressure 121/65 Pulse Oximetry 99 99 Oxygen Delivery Room Air 07/06/23 02:33 07/06/23 04:00 07/06/23 04:00 Temperature 98.0 F Pulse Rate 34 L 29 L 29 L Respiratory Rate 12 15 15 Blood Pressure 135/96 H 144/52 H Pulse Oximetry 97 99 99 Oxygen Delivery Room Air 07/06/23 0
[2023-07-06] MEDS: traMADol HCL (*CRX) 50 MG TABLET PO (21:50)
[2023-07-06 22:17] LABS: Glucose Point of Care 114 mg/dl (65-105)
[2023-07-07] VITALS (10 sets, daily range): BP systolic 129–163; BP diastolic 64–102; PULSE 63–94; RESP 13–22; TEMP 36.3–36.7; O2SAT 95–99
[2023-07-07 05:05] LABS: Hematocrit 35.7 % (42.0-52.0); Hemoglobin 11.4 g/dL (14.0-18.0); Mean Corpuscular HGB Conc 31.9 g/dl (32-36); Mean Corpuscular Hemoglobin 29.3 pg (26-34); Mean Corpuscular Volume 91.8 fl (80-100); Mean Platelet Volume 11.3 fl (7.4-10.4); Platelet Count Result 182 k/mm3 (150-375); Red Blood Count 3.89 M/mm3 (4.6-6.20); Red Cell Distribution Width 13.2 % (11.5-14.5); White Blood Count 7.5 K/mm3 (4.5-10.0)
[2023-07-07 05:16] LABS: Alanine Aminotransferase 32 U/L (6-50); Albumin Level 3.3 g/dL (3.5-5.1); Alkaline Phosphatase 67 U/L (38-126); Anion Gap 3 mmol/L (8-16); Aspartate Amino Transferase 25 U/L (17-59); Bilirubin,Total 0.5 mg/dL (0.2-1.3); Blood Urea Nitrogen 29 mg/dL (9-20); Calcium 8.8 mg/dL (8.4-10.2); Carbon Dioxide 27 mmol/L (22-30); Chloride 109 mmol/L (98-107); Estimated CRCL calculation 55 ml/min; Estimated Glomerular Filt Rate > 60; Glucose 127 mg/dL (65-110); Magnesium 2.2 mg/dL (1.6-2.3); Potassium 4.1 mmol/L (3.4-5.0); Sodium 139 mmol/L (137-145)
[2023-07-07] MEDS: traMADol HCL (*CRX) 50 MG TABLET PO (06:35)
[2023-07-07 07:44] LABS: Glucose Point of Care 127 mg/dl (65-105)
[2023-07-07] MEDS: LOVASTATIN 20 MG TABLET 40 MG PO (08:09)
--- NOTE | 2023-07-07 10:57 | PM.PNCARD ---
Progress Note: A&P Assessment and Plan (1) Third degree heart block: Code(s): I44.2 - Atrioventricular block, complete Status: Acute Assessment and Plan: Status post permanent pacemaker implantation. He is clinically stable. Pacemaker interrogation showed normal functioning of the device. If chest Xray is clear later today he can be discharged. Will arrange follow up in our office. Subjective Date/time seen: 07/07/23 10:57 Interval history: Cardiology follow up for complete heart block Feeling well this morning. No complaints. Denies any chest pain, shortness of breath. Mild tenderness surrounding pacer incision. Review of Systems Constitutional: Constitutional: Reports no additional constitutional complaints Eyes: Eyes: Reports no additional eye complaints ENT: Reports system reviewed and no additional complaints, except as documented Cardiovascular: Cardiovascular: Reports no additional cardiovascular complaints Respiratory: Respiratory: Reports no additional respiratory complaints Gastrointestinal: Gastrointestinal: Reports no additional gastrointestinal complaints Musculoskeletal: Musculoskeletal: Reports no additional musculoskeletal complaints Integumentary/Breasts: Skin/Breast: Reports system reviewed and no additional complaints, except as docu Neurologic: Reports as per HPI Endocrine: Endocrine: Reports no additional endocrine complaints Hematologic/Lymphatic: Hematologic/Lymphatic: Reports no additional hematologic/lymphatic complaints Allergic/Immunologic: Allergic/Immunologic: Reports no additional allergic/immunologic complaints Exam Const: General: comfortable and no acute distress Other: Pleasant elderly gentleman no distress HENMT: Mouth: Yes moist mucous membranes Eyes: Sclera: sclerae normal Neck: Neck: supple and no JVD Other: Carotid pulses are intact bilaterally there are no audible bruits Chest: Other: left pectoral incision covered with sterile dressing which is clean, dry, and intact. No bleeding or hematoma Resp: Effort & Inspection: normal respiratory effort Auscultation: clear to auscultation bilaterally Cardio: Rate: bradycardic Rhythm: regular rhythm Other: PMI nondisplaced no audible murmur GI: Auscultation: normal bowel sounds Skin: General skin exam: normal color Neuro: Other: Alert and oriented x3 Extrem: Other: No edema, good distal perfusion Objective Data Vital Signs Vital Signs: Vital Signs - 24 hr 07/06/23 12:15 07/06/23 12:30 07/06/23 13:00 Temperature 36.5 C Pulse Rate 75 76 81 Respiratory Rate 18 19 17 Blood Pressure 143/67 H 142/61 H 149/67 H Pulse Oximetry 97 98 100 Oxygen Delivery Oxygen Flow Rate 07/06/23 12:16 07/06/23 14:00 07/06/23 14:00 Temperature Pulse Rate 82 82 Respiratory Rate 19 Blood Pressure 142/58 H Pulse Oximetry 98 Oxygen Delivery Room Air Oxygen Flow Rate 07/06/23 15:54 07/06/23 15:54 07/06/23 18:00 Temperature 36.7 C Pulse Rate 78 78 74 Respiratory Rate 20 Blood Pressure 129/60 Pulse Oximetry 95 Oxygen Delivery Oxygen Flow Rate 07/06/23 18:00 07/06/23 20:00 07/06/23 20:00 Temperature Pulse Rate 74 70 63 Respiratory Rate 17 18 Blood Pressure 152/69 H 141/68 H Pulse Oximetry 99 98 Oxygen Delivery Oxygen Flow Rate 07/06/23 22:00 07/06/23 22:00 07/07/23 00:00 Temperature Pulse Rate 77 77 63 Respiratory Rate 16 Blood Pressure 143/64 H Pulse Oximetry 94 Oxygen Delivery Oxygen Flow Rate 07/07/23 00:00 07/07/23 00:00 07/07/23 02:00 Temperature Pulse Rate 65 74 Respiratory Rate 15 Blood Pressure 142/65 H Pulse Oximetry 99 97 Oxygen Delivery Nasal Cannula Oxygen Flow Rate 2 07/07/23 04:00 07/07/23 04:00 07/07/23 04:00 Temperature Pulse Rate 64 64 Respiratory Rate 13 Blood Pressure 140/64 Pulse Oximetry 99 99 Oxygen Del
[2023-07-07 11:55] LABS: Glucose Point of Care 160 mg/dl (65-105)
--- NOTE | 2023-07-07 14:36 | PM.DS ---
DS: Admitting Diagnosis Discharge Date 07/07/23 Admitting Diagnosis Bradycardia DS: Discharge Diagnosis Discharge Diagnosis (1) Third degree heart block: Code(s): I44.2 - Atrioventricular block, complete Status: Acute (2) Hyperglycemia due to diabetes mellitus: Code(s): E11.65 - Type 2 diabetes mellitus with hyperglycemia Status: Acute (3) Elevated serum creatinine: Code(s): R79.89 - Other specified abnormal findings of blood chemistry Status: Acute (4) Essential hypertension: Code(s): I10 - Essential (primary) hypertension Status: Acute (5) Hyperlipidemia: Code(s): E78.5 - Hyperlipidemia, unspecified Status: Acute (6) Renal mass: Code(s): N28.89 - Other specified disorders of kidney and ureter Status: Acute DS: Summary Hospital Course Hospital Course: 83-year-old present complete heart block, asymptomatic throughout the hospital stay. He did have a syncopal and symptoms of dizziness and lightheadedness intermittent cardiology was consulted status post permanent pacemaker implantation on 07/06/2023. Carvedilol was continue other medications. Renal ultrasound showed hypoechoic 1.9 cm left renal mass likely a cyst follow-up as an outpatient basis. Time Spent with Patient Time attestation: Total time spent providing and/or coordinating discharge services: 35 minutes Exam Narrative: General: Pt is alert awake and in NAD Lungs/Chest: Trachea central Clear BS B/L, No crackles or wheezing. Cardiac: Regular rate rhythm paced normal S1 S2. No murmurs left chest wall with dressing in place Circulation: Pedal pulses are intact and symmetrical. Abdomen: Normal bowel sounds.. Soft. NT. ND. Extremities: No clubbing, cyanosis or edema. Warm : Castle in place Neurologic: Follows commands. Moves all 4 extremities PERRL Skin: No Rash DS: Data Data Completed and Pending Completed studies during hospitalization: Exam Type: ? ? CA echo doppler color flow Study Info Indications ? ? I45.5 - Other specified heart block Complete two-dimensional, color flow and Doppler transthoracic echocardiogram is performed. Account #: ? ? [id number] Summary ? 1. Complete two-dimensional, color flow and Doppler transthoracic echocardiogram is performed. ? 2. Normal left ventricular and right ventricular size and systolic function. ? 3. Small amount of mitral and tricuspid valve regurgitation. ? 4. Complete heart block/high-grade AV block noted. Left Ventricle ? Left ventricular chamber dimension is normal. ? Left ventricular systolic function is normal, estimated at 65-70%. ? The left ventricular diastolic function is grade I diastolic dysfunction. Right Ventricle ? Right ventricular chamber dimension is normal. Left Atria ? Left atrial chamber dimension is mildly enlarged. Right Atria ? Right atrial chamber dimension is normal. Aortic Valve ? The aortic valve is normal. Pulmonic Valve ? The pulmonic valve is normal. Mitral Valve ? The mitral valve has normal leaflets. ? There is trace mitral valve regurgitation. Tricuspid Valve ? The tricuspid valve leaflets are normal. ? There is mild tricuspid valve regurgitation. Pericardium/Pleural ? The pericardium appears normal. Aorta ? The aortic root size at the sinus of Valsalva is normal. Labs on day of discharge: Labs from last 24 hours 07/07/23 07/07/23 07/07/23 11:36 07:15 04:32 WBC 7.5 RBC 3.89 L Hgb 11.4 L Hct 35.7 L MCV 91.8 MCH 29.3 MCHC 31.9 L RDW 13.2 Plt Count 182 MPV 11.3 H Sodium 139 Potassium 4.1 Chloride 109 H Carbon Dioxide 27 Anion Gap 3 L BUN 29 H Creatinine 1.00 Estim Creat Clear Calc 55 Estimated GFR > 60 Glucose 127 H POC Capillary Glucose 160 H 127 H Calcium 8.8 Magnesium 2.2 Total Bilirubin 0.5 AST 25 ALT 32 Alkaline Phosphatase 67 Total Protein
== END 2023-07-07 15:35 | disposition home or self-care (01) | DRG 243 ==
PROVIDERS: Internal Medicine; Specialist; Admitting Provider Internal Medicine; PCP Internal Medicine; Visit Provider Internal Medicine
PROC: 0JH606Z Insertion of Pacemaker, Dual Chamber into Chest Subcutaneous Tissue and Fascia, Open Approach (ICD-10-PCS; CPT 33208; principal; 2023-07-06 10:00)
DX: I44.2 Atrioventricular block, complete (principal); E87.1 Hypo-osmolality and hyponatremia; N17.9 Acute kidney failure, unspecified; I44.7 Left bundle-branch block, unspecified; I10 Essential (primary) hypertension; E78.5 Hyperlipidemia, unspecified; N40.1 Benign prostatic hyperplasia with lower urinary tract symptoms; N28.89 Other specified disorders of kidney and ureter; N39.41 Urge incontinence; R73.03 Prediabetes
CPT/HCPCS: 33208; 36415; 71045; 71046; 76775; 80048; 80053; 82550; 82570; 82948; 83036; 83735; 84300; 84439; 84443; 84480; 85027; 93005; 93306; A9270; C1779; C1785; J0690; J1265; J1650; J2250; J3010; J7030; J7040; J7120

== ENCOUNTER 2023-07-17 12:04 | Outpatient (CLI) | payer MEDICARE, OTHER, SELFPAY ==
--- NOTE | ~2023-07-17 | CT_ITS ---
EXAMINATION: CT hip LT wo con DATE: 07/17/2023 12:31 INDICATION: Left hip pain. TECHNIQUE: Computed tomography (CT) of the left hip was performed without intravenous contrast. Autom ated exposure control and iterative reconstruction technique were employed. The dose-length product w as 576.25 mGy-cm. COMPARISON: None FINDINGS: The bladder is markedly distended. There is a bladder diverticulum on the left. The prostat e is mildly enlarged. There is diverticulosis of the colon without evidence of diverticulitis. Bone a lignment is normal. No fracture. There is severe left hip osteoarthritis. IMPRESSION: 1. Severe left hip osteoarthritis. Reviewed, dictated and finalized at location A. R CONE MACHINE OPERATOR
--- NOTE | ~2023-07-17 | CT_ITS ---
EXAMINATION: CT lumbar spine wo con DATE: 07/17/2023 12:31 INDICATION: Lumbar radiculopathy. TECHNIQUE: Computed tomography (CT) of the lumbar spine was performed without intravenous contrast. A utomated exposure control and iterative reconstruction technique were employed. The dose-length produ ct was 1214.09 mGy-cm. COMPARISON: None FINDINGS: There is calcified atherosclerosis of the aorta and many of the other arteries. There is di verticulosis of the colon without evidence of diverticulitis. There is 3 mm anterolisthesis of L4 on L5. There is mild chronic anterior wedging of T11 and T12 vertebral bodies. There is moderately decre ased disc height at L1-L2. There is Baastrup disease at L3-L4 and L4-L5. The following disc levels ar e specifically discussed: L1-L2: The disc is bulging. There is mild right and severe left facet joint osteoarthritis. There is moderate bilateral neural foraminal stenosis. There is mild central canal stenosis. L2-L3: The disc is bulging. There is moderate bilateral facet joint osteoarthritis. There is mild maría ateral neural foraminal stenosis. There is mild central canal stenosis. L3-L4: The disc is bulging. There is severe bilateral facet joint osteoarthritis. There is moderate b ilateral neural foraminal stenosis. There is mild central canal stenosis. L4-L5: The disc is bulging. There is severe bilateral facet joint osteoarthritis. There is mild bilat eral neural foraminal stenosis. There is mild central canal stenosis. L5-S1: The disc is bulging. There is severe bilateral facet joint osteoarthritis. There is mild bilat eral neural foraminal stenosis. There is mild central canal stenosis. IMPRESSION: 1. Moderate lumbar spondylosis. Reviewed, dictated and finalized at location A. K MOVER
== END 2023-07-17 12:05 | disposition home or self-care (01) ==
LOC: CHSIMG 12:07
PROVIDERS: PCP Internal Medicine; Visit Provider Internal Medicine
DX: M25.552 Pain in left hip (principal); M16.12 Unilateral primary osteoarthritis, left hip; M43.06 Spondylolysis, lumbar region
CPT/HCPCS: 72131; 73700

== ENCOUNTER 2023-10-27 11:41 | Outpatient (CLI) | payer MEDICARE, OTHER, SELFPAY ==
[2023-10-27 13:53] LABS: Basophils Percent Auto 0.3 % (0.2-1.2); Eosinophils Absolute Auto 0.1 K/mm3 (0-0.3); Eosinophils Percent Auto 0.8 % (0-4.4); Hematocrit 42.3 % (42.0-52.0); Hemoglobin 13.7 g/dL (14.0-18.0); Immature Granulocyte Absolute 0.03 K/mm3 (0.00-0.031); Immature Granulocyte Percent A 0.4 % (0-0.5); Lymphocytes Absolute Auto 1.99 K/mm3 (0.9-3.2); Lymphocytes Percent Auto 25.2 % (18.3-44.2); Mean Corpuscular HGB Conc 32.4 g/dl (32-36); Mean Corpuscular Hemoglobin 29.8 pg (26-34); Mean Platelet Volume 10.8 fl (7.4-10.4); Monocytes Absolute Auto 0.8 K/mm3 (0.1-0.6); Monocytes Percent Auto 9.6 % (2.6-8.5); Neutrophils Percent Auto 63.7 % (45.5-73.1); Platelet Count Result 230 k/mm3 (150-375); Red Cell Distribution Width 12.9 % (11.5-14.5); White Blood Count 7.9 K/mm3 (4.5-10.0)
[2023-10-27 14:13] LABS: Urine Cotinine NEGATIVE
[2023-10-27 14:15] LABS: Albumin Level 4.8 g/dL (3.5-5.1); Anion Gap 8 mmol/L (4-12); Blood Urea Nitrogen 25 mg/dL (9-20); Carbon Dioxide 30 mmol/L (22-30); Chloride 101 mmol/L (98-107); Estimated Glomerular Filt Rate > 60; Glucose 132 mg/dL (65-110); Potassium 4.1 mmol/L (3.4-5.0); Sodium 139 mmol/L (137-145)
[2023-10-27 21:07] LABS: Hemoglobin A1C 6.7 % (<5.7)
== END 2023-10-27 11:42 | disposition home or self-care (01) ==
LOC: ANHSURGERY 11:47
PROVIDERS: PCP Internal Medicine; Visit Provider Orthopaedic Surgery
DX: Z01.818 Encounter for other preprocedural examination (principal); M16.12 Unilateral primary osteoarthritis, left hip
CPT/HCPCS: 80048; 80307; 82040; 83036; 85025; 86850; 86900; 86901; 87081

== ENCOUNTER 2023-11-10 13:09 | Inpatient (IN) | payer MEDICARE, OTHER, SELFPAY ==
--- NOTE | 2023-10-27 11:52 | PC.NURSE ---
PRE-OP INSTRUCTIONS, PLEASE READ CAREFULLY Report to the Outpatient Waiting Room, entrance under the green pavilion located off [facility], at time _0600_ on date _11/09/23_. Planned Procedure Time: _0730_. PACK A SMALL OVERNIGHT BAG AND BRING YOUR WALKER Time changes happen often and if your time is changed the preop area will call you the afternoon before. - You and your visitor will be asked to self-screen and do not enter if you have any COVID symptoms. - A mask is optional within the hospital at this time. -VISITING HOURS 8AM-8PM Patients may have clear liquids (water, carbonated beverages, clear teas, apple juice) until 3 hours prior to surgery (0430 AM) with a maximum of 20 ounces. - No food from midnight until time of surgery Take the following medications with a SIP of water the morning of surgery: _TRAMADOL, TYLENOL IF NEEDED_ DO NOT STOP ANY OF YOUR OTHER PRESCRIPTION MEDICATIONS PRIOR TO SURGERY ?EXCEPT THE FOLLOWING Medications to discontinue per ANESTHESIA - _MULTIVITAMIN 3 DAYS PRIOR TO SURGERY, Date to take last dose 11/05/23_ Please no make-up, nail hebrew, hairspray, perfume, deodorant, or body powder the day of surgery. No jewelry (including any body piercings) or valuables the day of surgery, leave them at home. Please take a shower or bath the night before, or the morning of, surgery with an antibacterial soap. Wear comfortable, loose fitting clothing. - Jewelry must be removed prior to entering the operating room. Rings and piercings that are not removed may be cut off. - The hospital will not accept responsibility for valuables. - Please leave all valuables, including medications, at home the day of surgery. If you are going home after surgery, a licensed helper driver must drive you home. - NO public transportation without another adult if you receive anesthesia. - We recommend that an adult stay with you for 24 hours following discharge. - We also recommend that you do not drive, make important decision, drink alcoholic beverages, or take any drugs that were not prescribed by your health care provider for at least 24 hours after your discharge time. Follow any additional instructions given to you from your surgeon. If you or anyone in your household have experienced Covid symptoms in the past week, please notify your surgeon or the nurse liaison at the phone number below for possible testing. Instructions given to _PATIENT_and asked if any additional questions and then verbalized understanding. Patient advised to call surgeon office or pre surgery nurse liaison [phone] if any additional questions.
[2023-10-27 12:15] VITALS: BP 150/90; PULSE 68; RESP 18; TEMP 36.9; O2SAT 100; BMI 25.9
--- NOTE | 2023-11-08 17:46 | PM.IMHP ---
H&P: HPI History of Present Illness Date/Time: 11/08/23 17:46 Chief Complaint: left groin pain due to osteoarthritis of left hip . Patient presents for left total hip arthroplasty Narrative: patient is an 83-year-old gentleman who developed spontaneous onset of rather severe left groin and lateral hip pain with pain into the left knee , in March of last year. He lives by himself and he is very active. He helps his neighbor form so we spends lot of time working outside. X-rays of the left hip in April 2023 showed mild osteoarthritis change. He had a cortisone shot May 19 which gave only temporary relief and subsequent CT scan of the left hip and descend bur showed progression to bone touching bone anterior superiorly with possible insufficiency fracture of the superolateral acetabular rim. There was also subtle impaction of the superior articular segment of the femoral head suggesting he may have had an insufficiency fracture. He has been using a cane on a regular basis. His past medical history is significant for borderline diabetes, BPH, essential hypertension, hyperlipidemia and this patient had developed complete heart block in mid June of 2023 in the head placement of a permanent pacemaker by Dr. Huang and he recovered without complication. He takes a baby aspirin daily for his heart we will continue with that. Dr. Huang has cleared him and stable from a cardiac standpoint at low risk for cardiac event with hip replacement surgery. [facility] Past Medical History Medical History (Updated 11/08/23 @ 17:51 by Ayaan Ibrahim MD) Borderline diabetes mellitus A1c has never been above 6.5 BPH (benign prostatic hyperplasia) Essential hypertension Hyperlipidemia Pacemaker June 2023 Urge urinary incontinence Surgical History Surgical History History of appendectomy As a child History of colonoscopy (08/2016) History of umbilical hernia repair Family History Family History Father Acute myocardial infarction Social History Social History (Updated 10/19/23 @ 12:00 by Jessica Simpson CMA) Social History: [place]. He and his raised 2 sons and a daughter. 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 He cares for a feral cat at his home. Code status: Full code Surrogate decision maker: Macy Dalyuch Smoking status: Never smoker Second hand tobacco smoke exposure: No Additional smoking assessment comments: PT DENIES ALL FORMS OF TOBACCO USE Alcohol intake: current Alcohol use details: RARELY - 4-5 BEERS/YR Substance use: never Substance use type: does not use Do You Feel Safe in your Home?: Yes Lack of Transportation: No Lack of Food: Never True Current Housing: I Have Housing Concerned About Future Housing: No Difficulty Paying Gas/Electric Bills: No Difficulty Paying for Meds: No Currently Unemployed: No Education: High School Diploma/GED Difficulty w/ Childcare or Family Care: No Living arrangements: alone Occupation/Education: retired Spiritual care concerns: No Meds Home Medications and Allergies Home Medications Medication Instructions Recorded Confirmed Type losartan 100 1 tablet PO DAILY 07/03/23 10/27/23 History mg-hydrochlorothiazide 12.5 mg tablet lovastatin 40 mg tablet 40 mg PO DAILY 07/03/23 10/27/23 History mirabegron 25 mg tablet,extended 25 mg PO DAILY 07/03/23 10/27/23 History release 24 hr (Myrbetriq) tramadol 50 mg tablet 50 mg PO Q6H PRN Pain 07/03/23 10/27/23 History acetaminophen 325 mg capsule 325 mg PO Q6H PRN Pain 10/27/23 10/27/23 History (Tylenol) aspirin 81 mg capsule 81 mg PO DAILY 10/27/23 10/27/23 History multivitamin 1 ta
[2023-11-09] VITALS (13 sets, daily range): BP systolic 110–167; BP diastolic 49–78; PULSE 68–103; RESP 14–22; TEMP 35.7–37.4; O2SAT 94–100
[2023-11-09] MEDS: ACETAMINOPHEN 500 MG TABLET 1000 MG PO ×3 (06:45→17:06)
[2023-11-09] MEDS: VANCOMYCIN 1,250 MG/NS 250 ML BAG 166.67 MG IVPB (06:45)
[2023-11-09] MEDS: LACTATED RINGERS 1,000 ML 30 ML IV CONT ×3 (06:45→12:09)
[2023-11-09] MEDS: TRANEXAMIC ACID 1,000MG/ISO100 1,000 MG/100 ML BAG 200 MG IVPB (06:50)
--- NOTE | 2023-11-09 06:59 | WPDANESEPPF ---
Anes - Initial Pre Proc Eval Procedure: Operation Date: 11/09/23 07:30 Proposed Procedures p Left Total Hip Arthroplasty, Direct Anterior Approach - Ayaan Ibrahim MD Date/Time: 11/09/23 06:59 Surgeon: Ayaan Ibrahim MD Pre Op Diagnosis: OA left hip Patient Data Age: 83 Gender: M Height: 1.83 m Weight: 86.9 kg Last Vital Signs Temp 98.4 F 10/27/23 12:15 Pulse 68 10/27/23 12:15 Resp 18 10/27/23 12:15 BP 150/90 H 10/27/23 12:15 Pulse Ox 100 10/27/23 12:15 O2 Del Method Room Air 10/27/23 12:15 Allergies Allergy/AdvReac Type Severity Reaction Status Date / Time No Known Allergies Allergy Verified 10/27/23 12:09 Home Medications Medication Instructions Recorded Confirmed Type losartan 100 1 tablet PO DAILY 07/03/23 10/27/23 History mg-hydrochlorothiazide 12.5 mg tablet lovastatin 40 mg tablet 40 mg PO DAILY 07/03/23 10/27/23 History mirabegron 25 mg tablet,extended 25 mg PO DAILY 07/03/23 10/27/23 History release 24 hr (Myrbetriq) tramadol 50 mg tablet 50 mg PO Q6H PRN Pain 07/03/23 10/27/23 History acetaminophen 325 mg capsule 325 mg PO Q6H PRN Pain 10/27/23 10/27/23 History (Tylenol) aspirin 81 mg capsule 81 mg PO DAILY 10/27/23 10/27/23 History multivitamin 1 tablet PO DAILY 10/27/23 10/27/23 History Patient hx anesthesia problems: none Family hx anesthesia problems: none Results Review: All pre-operative results and documents have been reviewed as part of the pre-operative evaluation. [facility] Past Medical History Medical History (Updated 11/08/23 @ 17:51 by Ayaan Ibrahim MD) Borderline diabetes mellitus A1c has never been above 6.5 BPH (benign prostatic hyperplasia) Essential hypertension Hyperlipidemia Pacemaker June 2023 Urge urinary incontinence Surgical History Surgical History History of appendectomy As a child History of colonoscopy (08/2016) History of umbilical hernia repair Family History Family History Father Acute myocardial infarction Social History Social History (Updated 10/19/23 @ 12:00 by Jessica Simpson CMA) Social History: [place]. He and his raised 2 sons and a daughter. 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 He cares for a feral cat at his home. Code status: Full code Surrogate decision maker: Macy Prather Smoking status: Never smoker Second hand tobacco smoke exposure: No Additional smoking assessment comments: PT DENIES ALL FORMS OF TOBACCO USE Alcohol intake: current Alcohol use details: RARELY - 4-5 BEERS/YR Substance use: never Substance use type: does not use Do You Feel Safe in your Home?: Yes Lack of Transportation: No Lack of Food: Never True Current Housing: I Have Housing Concerned About Future Housing: No Difficulty Paying Gas/Electric Bills: No Difficulty Paying for Meds: No Currently Unemployed: No Education: High School Diploma/GED Difficulty w/ Childcare or Family Care: No Living arrangements: alone Occupation/Education: retired Spiritual care concerns: No Anes - Eval Final PreProcedure Day of Procedure 11/09/23 06:59 Patient weight: normal Heart: regular rate and rhythm Lungs: clear to auscultation Airway: Mallampati scale and special considerations (Missing many in the post aspect. ) Neurological: alert and oriented Last oral intake: >/= 8 hours ASA classification: III Emergent: no Anesthetic plan: proceed Anesthesia type and monitoring: general and standard monitoring Results Review: All pre-operative results and documents have been reviewed as part of the pre-operative evaluation. CRMD form reviewed. Informed Consent: The patient's anesthetic p
--- NOTE | 2023-11-09 07:04 | WPDHPUPDATE1 ---
History and Physical Update Update Date/Time: 11/09/23 07:04 History and Physical has been reviewed, including an updated exam of the patient. There are NO changes in the patient's condition. Risks, benefits, and alternatives have been discussed and questions answered. Patient agrees to proceed with procedure.
[2023-11-09] MEDS: ceFAZolin 2 GM/D5W 50 ML 2 GM/50 ML BAG IVPB (07:38)
[2023-11-09] MEDS: ceFAZolin SODIUM 1 GM VIAL 3 GM (07:40)
[2023-11-09] MEDS: SODIUM CHLORIDE 0.9% IV 37.7 ML, MORPHINE SULFATE INJ (*CRX) 2 MG, ROPivacaine HCL 1% 2... INFILTRATE (07:41)
[2023-11-09] MEDS: ceFAZolin SODIUM 1 GM VIAL 2 GM IV PUSH (10:27)
[2023-11-09] MEDS: TRANEXAMIC ACID 1,000 MG/10 ML AMPUL 1000 MG IV PUSH (10:27)
--- NOTE | 2023-11-09 11:26 | P.OP_ITS ---
Procedure Note - Detailed Date of Procedure 11/09/23 Pre-op Diagnosis OA left hip Post-op Diagnosis Same Procedure Performed Left total hip arthroplasty direct anterior approach Surgeon Ayaan Ibrahim MD Ict Developer Kiran perez Anesthesia General Description of Procedure Patient was brought to the operating room and general anesthesia with was administered. He received 2 g of Ancef and weight based vancomycin 1 g of tranexamic acid. A Castle catheter was placed because of his history of BPH. Boots were applied after padding was applied the foot and he was transferred to the [facility] table and the left hip prepped draped usual fashion. A 10 cm longitudinal incision was made starting 3 cm lateral to the ASIS. Dissection was carried down to the fascia over the tensor fascia gilberto which was incised over the midportion elevated off the anterior 50% of the tensor fascia gilberto m uscle. Interval between TFL and rectus femoris developed. Crossing branches of ascending lateral femoral circumflex vessels were ligated with suture divided. Retractor was placed anteromedial to the hip capsule the hip abducted internally rotated the gluteus minimus elevated off the lateral hip capsule. Inverted T capsulotomy was performed. Femoral neck osteotomy was made according to preoper ative templating. Acetabulum was exposed labrum excised residual articular cartilage curetted. Fluoro confirmed that the neck cut height was proper. Leg was externally rotated extended and a minimal incision into the interval between piriformis and conjoined tendon was performed and a small portion of the tip of the lateral capsule excised for exposure. The leg back in the horizontal position and traction the acetabulum was exposed and prepared. We medialized with a 44 Reamer and went up to a 49 by 1 mm increments reamed up to a size 51 and a light reaming with the 52 and the 52 trial was snug and had full bony contact circumferentially and the 52 pinnacle cup was chosen. This was impacted into place with 40? of abduction and anteversion matching his anatomy. A secure Press-Fit was achieved a single screw placed in the ilium which also obtained excellent purchase. The 36 inner diameter polyethylene liner was placed and fully seated. The leg was X during only rotated extended with the table hook exposing the proximal femur and proximal femur was prepared by broaching up to a size 9 which still had a little bit of rotational play therefore we inserted the size 10 which was snug. We trialed with the -2 head high offset and this gave equal leg lengths and appropriate soft tissue tension. We calcar planed and the size 10 Actis high offset stem was impacted and fully seated. No cracks in the calcar. We trialed 1 more time with a-2 head and had appropriate soft tissue tension and stability. The stainless steel-236 mm diameter head was impacted on the clean and dried trunnion after thorough irrigation of the wound with antibiotic solution hip reduced stability reconfirmed final fluoroscopic x-rays obtained. Local anesthetic cocktail was injected in the soft tissues. Superior capsule was repaired with 2. Vicryl was. The fascia was repaired with 1. Vicryl drain deep the subcu skin closed with 2 subcutaneous Vicryl and glue EBL was 300 cc per 125 given back as Cell Saver. Additional 2 g of Ancef and 1 g of TXA given time wound closure. There were no known complications. This cancellous bone was a little bit soft but fairly typical for the 80 and we had good cortical contact and fixation the implants we will allow to be weight- bearing as tolerated but have him use the walker for 4 weeks. [facility] Billing Surgery - Charge Forward: Surgery Billing (Left total hip arthroplasty.)
[2023-11-09] MEDS: fentaNYL CITRATE INJ (*CRX) 100 MCG/2 ML VIAL 25 MCG IV PUSH ×4 (11:49→12:07)
--- NOTE | 2023-11-09 13:44 | ADMGEN ---
This patient, Tanvir Singh, was admitted to [facility] Surg Room 302-01. Patient/family oriented to hospital policies and general routines including ID bracelet, bed and alarms, visiting hours, pain management, procedures, bathroom and other care routines, personal items, smoking policy, room service/diet, and visiting hours. Information on how to activate the Rapid Response Team has been discussed. Patient/Family are encouraged to report perceived risks to care and to ask questions if they do not understand what they are told or what they should do.
[2023-11-09] MEDS: VANCOMYCIN 1,000 MG/NS 250 ML 1,000 MG/250 ML BAG 250 MG IVPB (13:55)
[2023-11-09] MEDS: oxyCODONE HCL (*CRX) 2.5 MG TAB IR PO ×3 (13:59→20:47)
--- NOTE | 2023-11-09 16:29 | PM.IMCN ---
Assessment and Plan Assessment and plan (1) Osteoarthritis of left hip: Qualifiers: Osteoarthritis type: primary Qualified Code(s): M16.12 - Unilateral primary osteoarthritis, left hip Code(s): M16.12 - Unilateral primary osteoarthritis, left hip Status: Acute (2) Hyperlipidemia: Code(s): E78.5 - Hyperlipidemia, unspecified Status: Acute (3) Essential hypertension: Code(s): I10 - Essential (primary) hypertension Status: Acute Plan Tanvir Singh is a 83 year old male with past medical history diabetes mellitus diet controlled, essential hypertension, hyperlipidemia, BPH, osteoarthritis, status post ppm 06/[address] Bradford due to complete heart block, who is postop today for elective left total hip arthroplasty via direct anterior approach. Hospitalist team has been consulted for medical management. Evaluation of the patient in room 302 postop he has no complaints, denies pain. The patient's home meds have been restarted aside from his hydrochlorothiazide. Asked nurse to check manual blood pressure and systolic was 130. Recommend continue to monitor. Full code. Stable. HPI Date of Consult Consult date: 11/09/23 Requesting Physician: Ayaan Ibrahim MD Primary Care Provider: Casandra Alvarenga MD Consult Narrative Reason for consult: Medical management Narrative: Tanvir Singh is a 83 year old male with past medical history diabetes mellitus diet controlled, essential hypertension, hyperlipidemia, BPH, osteoarthritis, status post ppm 06/[address] Bradford due to complete heart block, who is postop today for elective left total hip arthroplasty via direct anterior approach. Hospitalist team has been consulted for medical management. Evaluation of the patient in room 302 postop he has no complaints, denies pain. Review of Systems Review of Systems: All systems reviewed & are unremarkable except as noted in HPI and below (Subjective) [facility] Past Medical History Medical History (Updated 11/08/23 @ 17:51 by Ayaan Ibrahim MD) Borderline diabetes mellitus A1c has never been above 6.5 BPH (benign prostatic hyperplasia) Essential hypertension Hyperlipidemia Pacemaker June 2023 Urge urinary incontinence Surgical History Surgical History History of appendectomy As a child History of colonoscopy (08/2016) History of umbilical hernia repair Family History Family History Father Acute myocardial infarction Social History Social History (Updated 10/19/23 @ 12:00 by Jessica Simpson CMA) Social History: [place]. He and his raised 2 sons and a daughter. 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 He retired from [employer] He cares for a feral cat at his home. Code status: Full code Surrogate decision maker: Macy Prather Smoking status: Never smoker Second hand tobacco smoke exposure: No Additional smoking assessment comments: PT DENIES ALL FORMS OF TOBACCO USE Alcohol intake: never Alcohol use details: RARELY - 4-5 BEERS/YR Substance use: never Substance use type: does not use Do You Feel Safe in your Home?: Yes Lack of Transportation: No Lack of Food: Never True Current Housing: I Have Housing Concerned About Future Housing: No Difficulty Paying Gas/Electric Bills: No Difficulty Paying for Meds: No Currently Unemployed: No Education: Don't Know Difficulty w/ Childcare or Family Care: No Living arrangements: alone Occupation/Education: retired Spiritual care concerns: No Meds Home Medications and Allergies Home Medications Medication Instructions Recorded Confirmed Type losartan 100 1 tablet PO DAILY 07/03/23 11/09/23 History mg
[2023-11-09] MEDS: ceFAZolin 1 GM/NS 50 ML 1 GM/50 ML BAG IVPB (17:04)
[2023-11-09] MEDS: SENNA/DOCUSATE SODIUM TABLET 2 TAB PO (17:05)
[2023-11-10] VITALS (9 sets, daily range): BP systolic 115–126; BP diastolic 49–59; PULSE 66–90; RESP 16–18; TEMP 36.1–37.1; O2SAT 97–99
--- NOTE | ~2023-11-10 | XR_ITS ---
EXAMINATION: XR hip LT 1V w AP pelvis DATE: 11/09/2023 11:47 INDICATION: Left total hip arthroplasty TECHNIQUE: 2 views left hip FINDINGS: There is a left total hip arthroplasty in expected position. Subcutaneous gas with soft ti ssue swelling are consistent with recent surgery. IMPRESSION: 1. Recent left total hip arthroplasty. Reviewed, dictated and finalized at location B.
--- NOTE | ~2023-11-10 | XR_ITS ---
EXAMINATION: XR surgery orthopedic DATE: 11/09/2023 10:43 INDICATION: Anterior approach total left hip arthroplasty. TECHNIQUE: 2 intraoperative fluoroscopic views of left hip were obtained. I was not present. Fluorosc opy exposure time was 45 seconds. COMPARISON: Left hip radiographs 08/12/2023 FINDINGS: There is a total left hip arthroplasty in near-anatomic alignment. No fracture. IMPRESSION: 1. Total left hip arthroplasty in near-anatomic alignment. Reviewed, dictated and finalized at location E.
[2023-11-10] MEDS: ceFAZolin 1 GM/NS 50 ML 1 GM/50 ML BAG IVPB ×2 (00:37→08:53)
[2023-11-10] MEDS: ACETAMINOPHEN 500 MG TABLET 1000 MG PO ×4 (00:37→17:10)
[2023-11-10] MEDS: oxyCODONE HCL (*CRX) 2.5 MG TAB IR PO ×6 (00:37→20:54)
[2023-11-10] MEDS: MIRABEGRON 25 MG ER TABLET PO (01:19)
[2023-11-10] MEDS: VANCOMYCIN 1,000 MG/NS 250 ML 1,000 MG/250 ML BAG 250 MG IVPB (01:19)
[2023-11-10 06:33] LABS: Basophils Percent Auto 0.3 % (0.2-1.2); Eosinophils Percent Auto 0.2 % (0-4.4); Hematocrit 34.4 % (42.0-52.0); Hemoglobin 10.9 g/dL (14.0-18.0); Immature Granulocyte Absolute 0.03 K/mm3 (0.00-0.031); Immature Granulocyte Percent A 0.3 % (0-0.5); Lymphocytes Absolute Auto 1.38 K/mm3 (0.9-3.2); Lymphocytes Percent Auto 13.7 % (18.3-44.2); Mean Corpuscular HGB Conc 31.7 g/dl (32-36); Mean Corpuscular Hemoglobin 29.5 pg (26-34); Mean Platelet Volume 11.1 fl (7.4-10.4); Monocytes Absolute Auto 1.1 K/mm3 (0.1-0.6); Monocytes Percent Auto 10.9 % (2.6-8.5); Neutrophils Absolute Auto 7.5 K/mm3 (1.3-6.7); Neutrophils Percent Auto 74.6 % (45.5-73.1); Platelet Count Result 169 k/mm3 (150-375); Red Cell Distribution Width 12.9 % (11.5-14.5); White Blood Count 10.1 K/mm3 (4.5-10.0)
[2023-11-10 06:41] LABS: Anion Gap 2 mmol/L (4-12); Blood Urea Nitrogen 29 mg/dL (9-20); Calcium 9.2 mg/dL (8.4-10.2); Carbon Dioxide 31 mmol/L (22-30); Chloride 105 mmol/L (98-107); Estimated CRCL calculation 50 ml/min; Estimated Glomerular Filt Rate > 60; Glucose 132 mg/dL (65-110); Potassium 4.7 mmol/L (3.4-5.0); Sodium 138 mmol/L (137-145)
--- NOTE | 2023-11-10 08:01 | PM.IMPN ---
Progress Note: A&P Assessment and Plan (1) Osteoarthritis of left hip: Qualifiers: Osteoarthritis type: primary Qualified Code(s): M16.12 - Unilateral primary osteoarthritis, left hip Code(s): M16.12 - Unilateral primary osteoarthritis, left hip Status: Acute (2) Hyperlipidemia: Code(s): E78.5 - Hyperlipidemia, unspecified Status: Acute (3) Essential hypertension: Code(s): I10 - Essential (primary) hypertension Status: Acute Plan Tanvir Singh is a 83 year old male with past medical history diabetes mellitus diet controlled, essential hypertension, hyperlipidemia, BPH, osteoarthritis, status post ppm 06/[address] Bradford due to complete heart block, who presented for elective hip surgery. Status post left total hip arthroplasty 11/09/23. Continue PT OT as ordered Acute urinary retention 11/10/23: Bladder scan more than 900 cc. Castle catheter placed. Urology consulted Hypertension on hydrochlorothiazide Hyperlipidemia on lovastatin Type 2 diabetes diet controlled she at 6.7 BPH history of overactive bladder on Myrbetriq Osteoarthritis Complete heart block status post pacemaker implantation 06/2023. DVT prophylaxis Per orthopedics Code status full code Subjective Date/time seen: 11/10/23 08:01 Interval history: Status post hip surgery. Working with therapy. At urinary retention this a.m. and Castle catheter placed. Urology has been consulted. Review of Systems Review of Systems: All systems reviewed & are unremarkable except as noted in HPI and below (Subjective) Exam Narrative: Const:?? General: comfortable and no acute distress; A&O x3 Eyes:?? Pupils: Equal, round and reactive pupils present Neck:?? Neck: supple Resp:?? Effort & Inspection: normal respiratory effort? Auscultation: clear to auscultation bilaterally Cardio:?? Rate: regular rate? Rhythm: regular rhythm GI:?? Soft to palpation and No Tenderness to palpation present Extrem:?? General: no edema? Other: Neurovascularly intact in all 4 extremities Objective Data Vital Signs Vital Signs: Vital Signs - 24 hr 11/09/23 11:20 11/09/23 11:35 11/09/23 11:50 Temperature 98 F Pulse Rate 78 78 97 Respiratory Rate 15 18 16 Blood Pressure 127/52 L 144/78 H 145/62 H Pulse Oximetry 100 100 95 Oxygen Delivery Simple Face Mask Simple Face Mask Room Air Oxygen Flow Rate 10 10 11/09/23 12:05 11/09/23 12:20 11/09/23 12:33 Temperature Pulse Rate 96 98 78 Respiratory Rate 17 17 22 H Blood Pressure 149/68 H 149/68 H 147/75 H Pulse Oximetry 94 97 97 Oxygen Delivery Room Air Room Air Room Air Oxygen Flow Rate 11/09/23 12:50 11/09/23 13:05 11/09/23 13:35 Temperature 96.3 F L 96.5 F L 96.6 F L Pulse Rate 103 H 92 97 Respiratory Rate 16 16 16 Blood Pressure 144/71 H 139/61 126/63 Pulse Oximetry 98 95 98 Oxygen Delivery Oxygen Flow Rate 11/09/23 14:31 11/09/23 14:35 11/09/23 20:09 Temperature 96.9 F L 99.4 F Pulse Rate 68 83 Respiratory Rate 20 16 Blood Pressure 167/52 H 110/49 L Pulse Oximetry 99 99 Oxygen Delivery Room Air Oxygen Flow Rate 11/09/23 20:00 11/10/23 00:00 11/10/23 04:00 Temperature Pulse Rate 75 75 66 Respiratory Rate Blood Pressure Pulse Oximetry Oxygen Delivery Oxygen Flow Rate 11/10/23 04:31 11/10/23 07:56 Temperature 98.7 F 97.6 F Pulse Rate 83 81 Respiratory Rate 16 16 Blood Pressure 115/53 L 117/49 L Pulse Oximetry 99 97 Oxygen Delivery Oxygen Flow Rate Intake/Output Intake/Output: Intake & Output 11/07/23 11/08/23 11/09/23 11/10/23 23:59 23:59 23:59 23:59 Intake Total 1390 300 Output Total 1350 Balance 1390 -1050 Meds/Results Medications: Active Medications Generic Name Dose Route Start Last Admin Trade Name Freq PRN Reason Stop Dose Admin Acetaminophen 1,000 mg 11/09/23 12:33 11/10/23 05:28 Acetaminophen 500 Mg Tablet PO 1,000 mg Q6HR [facility]
--- NOTE | 2023-11-10 08:44 | PC.NURSE ---
this RN notified MD of bladder scan >900. MD orders kim catheter be placed and urology be consulted.
[2023-11-10] MEDS: LOVASTATIN 20 MG TABLET 40 MG PO (08:50)
[2023-11-10] MEDS: ASPIRIN 81 MG CHEWABLE TABLET PO (08:51)
[2023-11-10] MEDS: SENNA/DOCUSATE SODIUM TABLET 2 TAB PO ×2 (08:51→17:08)
[2023-11-10] MEDS: LOSARTAN POTASSIUM 100 MG TABLET PO (08:51)
[2023-11-10] MEDS: CEFDINIR 300 MG CAPSULE PO ×2 (08:51→20:54)
[2023-11-10] MEDS: CELECOXIB 100 MG CAPSULE PO (08:51)
[2023-11-10] MEDS: APIXABAN 2.5 MG TABLET PO ×2 (08:51→20:54)
[2023-11-10] MEDS: MULTIVITAMINS THERAPEUTIC TAB (*BKC) 1 TABLET PO (08:51)
[2023-11-10] MEDS: polyethylene glycoL 3350 17 GM POWD.PACK PO (08:53)
--- NOTE | 2023-11-10 08:57 | WPDANESPN ---
Anes - Prog Note Post-Op Date/Time: 11/10/23 08:57 Cardiovascular status: normal Respiratory status: normal Airway patency: baseline Mental status: baseline Post-Op hydration status: normal Vital Signs: Last Vital Signs Temp 36.4 C 11/10/23 07:56 Pulse 81 11/10/23 07:56 Resp 16 11/10/23 07:56 BP 117/49 L 11/10/23 07:56 Pulse Ox 97 11/10/23 07:56 O2 Del Method Room Air 11/09/23 14:31 O2 Flow Rate 10 11/09/23 11:35 Pain Score (VAS): 09/26 I/O: Intake & Output 11/09/23 11/10/23 11/10/23 23:59 07:59 15:59 Intake Total 590 300 Output Total 1350 50 Balance 590 -1050 -50 Laboratory Tests 11/10/23 05:44 11/10/23 05:44 11/10/23 05:44 WBC 10.1 H RBC 3.70 L Hgb 10.9 L Hct 34.4 L MCV 93.0 MCH 29.5 MCHC 31.7 L RDW 12.9 Plt Count 169 MPV 11.1 H Immature Gran % (Auto) 0.3 Neut % (Auto) 74.6 H Lymph % (Auto) 13.7 L Sharp % (Auto) 10.9 H Eos % (Auto) 0.2 Baso % (Auto) 0.3 Lymph # (Auto) 1.38 Sharp # (Auto) 1.1 H Eos # (Auto) 0.0 Baso # (Auto) 0.0 Abs Immat Gran (auto) 0.03 Absolute Neuts (auto) 7.5 H Absolute Nucleated RBC 0.000 Nucleated RBC % 0.0 Sodium 138 Potassium 4.7 Chloride 105 Carbon Dioxide 31 H Anion Gap 2 L BUN 29 H Creatinine 1.10 Estim Creat Clear Calc 50 Estimated GFR > 60 Glucose 132 H Calcium 9.2 Post-procedural complaints: none Patient Feedback: Patient satisfied with anesthetic care.
--- NOTE | 2023-11-10 09:56 | WPDURCON ---
Assessment and Plan Assessment and plan (1) Urinary retention: Code(s): R33.9 - Retention of urine, unspecified Status: Acute Assessment and Plan: >1 L postoperative urinary retention Kim catheter placed today with 1200 cc urine output Will begin tamsulosin Limit narcotics and manage constipation Plan for void trial in 5-7 days. If he discharges to rehab facility, this can be completed there. (2) Urge urinary incontinence: Code(s): N39.41 - Urge incontinence Status: Acute Assessment and Plan: Currently on Myrbetriq which we will discontinue given his urinary retention Urology Consult Note HPI Date Seen: 11/10/23 Requesting Physician: Ayaan Ibrahim MD Primary Care Provider: Casandra Alvarenga MD Consult Narrative Narrative: Tanvir Singh is a 83 year old male with a history of hypertension, prediabetes, and urge incontinence who is being seen in consultation for urinary retention. He underwent left hip replacement on 11/09/2023 and following this had difficulty voiding. Yesterday evening a bladder scan showed 1100 cc and he was straight cahterized with 1 L urine output. He was then able to void a small amount but unfortunately repeat bladder scan showed >900 cc. A kim catheter was placed with output of 1200 cc clear yellow urine. He reports prior to surgery he was voiding without difficulty. Urinary stream was good and he denied straining to void. Denied dysuria or hematuria. He does report urge incontinence for which he takes Myrbetriq with improvement in symptoms. This is managed by his PCP. He is not established with a urologist and denies any prior urologic history. BPH is listed in his medical history but he denies any history of this and is not on any medications for such. His creatinine is within normal limits at 1.1. UA not obtained. At the time of my evaluation, he is resting comfortably and offers no complaints. Review of Systems Review of Systems: All systems reviewed & are unremarkable except as noted in HPI and below PMFSH Past Medical History Medical History (Updated 11/10/23 @ 15:47 by Keeley Vasquez PA-C) Borderline diabetes mellitus A1c has never been above 6.5 BPH (benign prostatic hyperplasia) Essential hypertension Hyperlipidemia Pacemaker June 2023 Urge urinary incontinence Surgical History Surgical History History of appendectomy As a child History of colonoscopy (08/2016) History of umbilical hernia repair Family History Family History Father Acute myocardial infarction Social History Social History (Updated 10/19/23 @ 12:00 by Jessica Simpson CMA) Social History: [place]. He and his raised 2 sons and a daughter. 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 He cares for a feral cat at his home. Code status: Full code Surrogate decision maker: Macy Prather Smoking status: Never smoker Second hand tobacco smoke exposure: No Additional smoking assessment comments: PT DENIES ALL FORMS OF TOBACCO USE Alcohol intake: never Alcohol use details: RARELY - 4-5 BEERS/YR Substance use: never Substance use type: does not use Do You Feel Safe in your Home?: Yes Lack of Transportation: No Lack of Food: Never True Current Housing: I Have Housing Concerned About Future Housing: No Difficulty Paying Gas/Electric Bills: No Difficulty Paying for Meds: No Currently Unemployed: No Education: Don't Know Difficulty w/ Childcare or Family Care: No Living arrangements: alone Occupation/Education: retired Spiritual care concerns: No Meds Home Medications and Allergies Home Medications Medication Instructions Recorded
--- NOTE | 2023-11-10 13:01 | PM.PNORT ---
Progress Note: A&P Assessment and Plan (1) Osteoarthritis of left hip: Qualifiers: Osteoarthritis type: primary Qualified Code(s): M16.12 - Unilateral primary osteoarthritis, left hip Code(s): M16.12 - Unilateral primary osteoarthritis, left hip Status: Acute Assessment and Plan: Patient is day 1 after left total hip replacement. His vital signs are stable. His labs are fine. He has hemoglobin 10.9 acute blood-loss anemia mild. He required in and out catheterization last night and this morning he had 900 cc in his bladder again and I asked for a Castle catheter to be placed. He states his stream is usually good. He takes Myrbetriq. Patient's chart says he has his BPH. I am going to ask the urologist on-call to make recommendations. We will leave the Castle catheter He is neurologically intact he has no significant swelling leg he has been up walking in the halls and has done well. He lives by himself at home and he would like to go to the [facility] for 5-7 days I think that should be helpful. We will formally admit him at this point as we will keep him in the hospital at least through tonight and plan for transfer to acute rehab at discharge. Subjective Subjective Date/Time Seen: 11/10/23 13:01 Objective Data Vital Signs Vital Signs: Vital Signs - 24 hr 11/09/23 13:05 11/09/23 13:35 11/09/23 14:31 Temperature 35.8 C L 35.9 C L Pulse Rate 92 97 Respiratory Rate 16 16 Blood Pressure 139/61 126/63 Pulse Oximetry 95 98 Oxygen Delivery Room Air 11/09/23 14:35 11/09/23 20:09 11/09/23 20:00 Temperature 36.1 C L 37.4 C Pulse Rate 68 83 75 Respiratory Rate 20 16 Blood Pressure 167/52 H 110/49 L Pulse Oximetry 99 99 Oxygen Delivery 11/10/23 00:00 11/10/23 04:00 11/10/23 04:31 Temperature 37.1 C Pulse Rate 75 66 83 Respiratory Rate 16 Blood Pressure 115/53 L Pulse Oximetry 99 Oxygen Delivery 11/10/23 07:56 11/10/23 08:50 Temperature 36.4 C Pulse Rate 81 Respiratory Rate 16 Blood Pressure 117/49 L Pulse Oximetry 97 Oxygen Delivery Room Air Intake/Output Intake/Output: Intake & Output 11/07/23 11/08/23 11/09/23 11/10/23 23:59 23:59 23:59 23:59 Intake Total 1390 300 Output Total 1400 Balance 1390 -1100 Meds/Results Medications: Active Medications Generic Name Dose Route Start Last Admin Trade Name Freq PRN Reason Stop Dose Admin Acetaminophen 1,000 mg 11/09/23 12:33 11/10/23 12:34 Acetaminophen 500 Mg Tablet PO 1,000 mg Q6HR CHEN Administration Apixaban 2.5 mg 11/10/23 09:00 11/10/23 08:51 Apixaban 2.5 Mg Tablet PO 2.5 mg Q12HR CHEN Administration Aspirin 81 mg 11/10/23 08:00 11/10/23 08:51 Aspirin 81 Mg Chewable Tablet PO 81 mg DAILY@0800 CHEN Administration Cefdinir 300 mg 11/10/23 09:00 11/10/23 08:51 Cefdinir 300 Mg Capsule PO 300 mg Q12HR CHEN Administration Celecoxib 100 mg 11/10/23 08:00 11/10/23 08:51 Celecoxib 100 Mg Capsule PO 100 mg DAILY@0800 CHEN Administration Dextrose 12.5 gm 11/09/23 11:21 Dextrose 50% 25 Gm/50 Ml Syringe IV PUSH PRN PRN Hypoglycemia Protocol Glucagon 1 mg 11/09/23 11:21 Glucagon For Inj 1 Mg Vial IM PRN PRN Hypoglycemia Protocol Glucose 15 gm 11/09/23 11:21 Glucose Oral Gel 15 Gm Of Glucse In 37.5 Gm Tube PO PRN PRN Hypoglycemia Protocol Losartan Potassium 100 mg 11/10/23 09:00 11/10/23 08:51 Losartan Potassium 100 Mg Tablet PO 100 mg DAILY CHEN Administration Lovastatin 40 mg 11/10/23 09:00 11/10/23 08:50 Lovastatin 20 Mg Tablet PO 40 mg DAILY CHEN Administration Morphine Sulfate 1 mg 11/09/23 12:33 Morphine Sulfate (*Crx) 2 Mg/Ml Inj IV PUSH Q1H PRN Pain Rated 7-10 Multivitamins Therapeutic 1 tablet 11/10/23 09:00 11/10/23 08:51 Multivitamins Therapeutic Tab (*Bkc) PO 1 tablet DAILY [facility] Admi
[2023-11-10] MEDS: NEOMYCIN/POLYMYXIN/BACITRACIN OINTMENT PACKET 1 PACKET (16:49)
[2023-11-10] MEDS: TAMSULOSIN HCL 0.4 MG CAPSULE PO (17:09)
[2023-11-11] VITALS: PULSE 90
[2023-11-11] MEDS: oxyCODONE HCL (*CRX) 2.5 MG TAB IR PO ×4 (00:01→12:11)
[2023-11-11] MEDS: ACETAMINOPHEN 500 MG TABLET 1000 MG PO ×3 (00:01→12:11)
[2023-11-11 04:00] VITALS: PULSE 86
[2023-11-11 05:16] VITALS: BP 138/63; PULSE 81; RESP 16; TEMP 36.6; O2SAT 99
[2023-11-11 07:10] LABS: Basophils Percent Auto 0.2 % (0.2-1.2); Eosinophils Percent Auto 0.4 % (0-4.4); Hematocrit 33.8 % (42.0-52.0); Hemoglobin 10.6 g/dL (14.0-18.0); Immature Granulocyte Absolute 0.03 K/mm3 (0.00-0.031); Immature Granulocyte Percent A 0.3 % (0-0.5); Lymphocytes Absolute Auto 1.44 K/mm3 (0.9-3.2); Lymphocytes Percent Auto 15.6 % (18.3-44.2); Mean Corpuscular HGB Conc 31.4 g/dl (32-36); Mean Corpuscular Hemoglobin 29.4 pg (26-34); Mean Corpuscular Volume 93.9 fl (80-100); Mean Platelet Volume 11.4 fl (7.4-10.4); Monocytes Absolute Auto 0.9 K/mm3 (0.1-0.6); Monocytes Percent Auto 10.1 % (2.6-8.5); Neutrophils Absolute Auto 6.8 K/mm3 (1.3-6.7); Neutrophils Percent Auto 73.4 % (45.5-73.1); Platelet Count Result 155 k/mm3 (150-375); Red Cell Distribution Width 12.9 % (11.5-14.5); White Blood Count 9.2 K/mm3 (4.5-10.0)
--- NOTE | 2023-11-11 07:11 | PM.PNORT ---
Progress Note: A&P Assessment and Plan (1) Osteoarthritis of left hip: Qualifiers: Osteoarthritis type: primary Qualified Code(s): M16.12 - Unilateral primary osteoarthritis, left hip Code(s): M16.12 - Unilateral primary osteoarthritis, left hip Status: Acute Assessment and Plan: Patient is postoperative day 2. After left total was well. His wound looks is no swelling in his left leg is moving around well comfortable. His pain is well controlled. The urologist saw him and recommended placement of asked to be removed in 4 days at the rehab facility where he was spurred and they will do a voiding trial than. I am suspicious that history of bladder spasms urgency in the past may be related to chronic urinary retention as he had 1200 cc of urine in his bladder without severe urgency. He did not realize that his bladder was markedly distended. He did void a little bit just prior to them placing the Castle catheter and the night before he had similar situation 900 cc in his bladder without urgency. Patient is ready for transfer to [facility] rehab facility today. Subjective Subjective Date/Time Seen: 11/11/23 07:11 Objective Data Vital Signs Vital Signs: Vital Signs - 24 hr 11/10/23 07:56 11/10/23 08:50 11/10/23 08:00 Temperature 36.4 C Pulse Rate 81 86 Respiratory Rate 16 Blood Pressure 117/49 L Pulse Oximetry 97 Oxygen Delivery Room Air 11/10/23 12:00 11/10/23 12:00 11/10/23 16:00 Temperature 36.1 C L Pulse Rate 87 90 82 Respiratory Rate 18 Blood Pressure 126/54 L Pulse Oximetry 99 Oxygen Delivery 11/10/23 20:45 11/10/23 20:00 11/11/23 00:00 Temperature 36.7 C Pulse Rate 82 84 90 Respiratory Rate 16 Blood Pressure 125/59 L Pulse Oximetry 97 Oxygen Delivery 11/11/23 04:00 11/11/23 05:16 Temperature 36.6 C Pulse Rate 86 81 Respiratory Rate 16 Blood Pressure 138/63 Pulse Oximetry 99 Oxygen Delivery Intake/Output Intake/Output: Intake & Output 11/08/23 11/09/23 11/10/23 11/11/23 23:59 23:59 23:59 23:59 Intake Total 1390 590 Output Total 2650 1200 Balance 1390 -2060 -1200 Meds/Results Medications: Active Medications Generic Name Dose Route Start Last Admin Trade Name Cliffq PRN Reason Stop Dose Admin Acetaminophen 1,000 mg 11/09/23 12:33 11/11/23 05:40 Acetaminophen 500 Mg Tablet PO 1,000 mg Q6HR CHEN Administration Apixaban 2.5 mg 11/10/23 09:00 11/10/23 20:54 Apixaban 2.5 Mg Tablet PO 2.5 mg Q12HR CHEN Administration Aspirin 81 mg 11/10/23 08:00 11/10/23 08:51 Aspirin 81 Mg Chewable Tablet PO 81 mg DAILY@0800 CHEN Administration Cefdinir 300 mg 11/10/23 09:00 11/10/23 20:54 Cefdinir 300 Mg Capsule PO 300 mg Q12HR CHEN Administration Celecoxib 100 mg 11/10/23 08:00 11/10/23 08:51 Celecoxib 100 Mg Capsule PO 100 mg DAILY@0800 CHEN Administration Dextrose 12.5 gm 11/09/23 11:21 Dextrose 50% 25 Gm/50 Ml Syringe IV PUSH PRN PRN Hypoglycemia Protocol Glucagon 1 mg 11/09/23 11:21 Glucagon For Inj 1 Mg Vial IM PRN PRN Hypoglycemia Protocol Glucose 15 gm 11/09/23 11:21 Glucose Oral Gel 15 Gm Of Glucse In 37.5 Gm Tube PO PRN PRN Hypoglycemia Protocol Losartan Potassium 100 mg 11/10/23 09:00 11/10/23 08:51 Losartan Potassium 100 Mg Tablet PO 100 mg DAILY CHEN Administration Lovastatin 40 mg 11/10/23 09:00 11/10/23 08:50 Lovastatin 20 Mg Tablet PO 40 mg DAILY CHEN Administration Morphine Sulfate 1 mg 11/09/23 12:33 Morphine Sulfate (*Crx) 2 Mg/Ml Inj IV PUSH Q1H PRN Pain Rated 7-10 Multivitamins Therapeutic 1 tablet 11/10/23 09:00 11/10/23 08:51 Multivitamins Therapeutic Tab (*Bkc) PO 1 tablet DAILY CHEN Administration Naloxone HCl 0.1 mg 11/09/23 12:33 Naloxone Hcl 0.4 Mg/Ml Vial IV PUSH Q2M PRN Opiate Reversal O
[2023-11-11 07:31] LABS: Alanine Aminotransferase 10 U/L (6-50); Albumin Level 3.4 g/dL (3.5-5.1); Alkaline Phosphatase 59 U/L (38-126); Anion Gap 4 mmol/L (4-12); Aspartate Amino Transferase 26 U/L (17-59); Bilirubin,Total 0.6 mg/dL (0.2-1.3); Blood Urea Nitrogen 21 mg/dL (9-20); Carbon Dioxide 29 mmol/L (22-30); Chloride 106 mmol/L (98-107); Estimated CRCL calculation 68 ml/min; Estimated Glomerular Filt Rate > 60; Glucose 151 mg/dL (65-110); Magnesium 2.2 mg/dL (1.6-2.3); Potassium 4.2 mmol/L (3.4-5.0); Sodium 139 mmol/L (137-145)
[2023-11-11 08:00] VITALS: PULSE 84
[2023-11-11] MEDS: ASPIRIN 81 MG CHEWABLE TABLET PO (09:28)
[2023-11-11] MEDS: SENNA/DOCUSATE SODIUM TABLET 2 TAB PO (09:28)
[2023-11-11] MEDS: LOVASTATIN 20 MG TABLET 40 MG PO (09:28)
[2023-11-11] MEDS: CEFDINIR 300 MG CAPSULE PO (09:29)
[2023-11-11] MEDS: APIXABAN 2.5 MG TABLET PO (09:29)
[2023-11-11] MEDS: TAMSULOSIN HCL 0.4 MG CAPSULE PO (09:29)
[2023-11-11] MEDS: MULTIVITAMINS THERAPEUTIC TAB (*BKC) 1 TABLET PO (09:29)
[2023-11-11] MEDS: CELECOXIB 100 MG CAPSULE PO (09:29)
[2023-11-11] MEDS: LOSARTAN POTASSIUM 100 MG TABLET PO (09:29)
[2023-11-11] MEDS: polyethylene glycoL 3350 17 GM POWD.PACK PO (09:29)
--- NOTE | 2023-11-11 10:33 | PM.DS ---
DS: Admitting Diagnosis Discharge Date 11/11/2023 Admitting Diagnosis osteoarthritis left hip DS: Discharge Diagnosis Discharge Diagnosis (1) Status post total hip replacement, left: Code(s): Z96.642 - Presence of left artificial hip joint Status: Acute DS: Summary Hospital Course Hospital Course: patient was admitted following left total hip arthroplasty on 11/09/2023. His postoperative course was complicated by urinary retention. On the evening of his surgery he had not voided after removal of the Castle catheter and bladder scan showed 900 cc and in and out catheterization was performed. The following morning yesterday morning he had not voided again and bladder scan showed large amount of urine in the bladder and he had a Castle catheter placed which drained 1200 cc of urine. Patient states he did not feel a sense of urgency or discomfort. He had voided a little bit just prior to placing the catheter. This suggests the may have chronic urinary retention. We consulted recommended stopping the Myrbetriq and initiating Flomax which was done yesterday and recommended starting voiding trials after 5-7 days. I have left orders for him to have the Castle catheter removed on 11/07/2023. His postoperative course has otherwise been quite uneventful. He has been comfortable with ambulation and having very little discomfort. We were using low-dose oxycodone 2.5 mg and we will try to avoid that if possible as that may contribute to urinary retention. He lives by himself at home and does not have any family in the area therefore it was felt safest to have him go to [facility] for a week or so and they can institute the voiding trials as ordered. His laboratory studies today show hemoglobin of 10.6, mild acute blood loss anemia. Normal white count. Platelets [id number]. His BUN is 21 and his creatinine is down to 0.8 creatinine clearance 68. This suggests that he is well hydrated and his renal function is improved. His creatinine was 1.1 immediately preop. Last June his creatinine was 1.5. He will be on Eliquis for 5 weeks for DVT prophylaxis. He will be on Celebrex low-dose 100 mg daily for 8 more days for prophylaxis against heterotopic ossification. He is on baby aspirin. He will have prophylaxis against constipation. He is weight-bearing as tolerated. Would like him to use a walker for 4 weeks for balance. Recheck in the office in 2 weeks was as in progress. He has been completely alert and oriented during the hospitalization. Time Spent with Patient Time attestation: Total time spent providing and/or coordinating discharge services: Exam Narrative: Is alert and oriented his wound is clean and dry with minimal swelling no swelling in the leg. Sensory motor function left leg is intact. Urinary Catheter: Urinary Catheter: patent and draining DS: Data Data Completed and Pending Labs on day of discharge: Labs from last 24 hours 11/11/23 06:05 WBC 9.2 RBC 3.60 L Hgb 10.6 L Hct 33.8 L MCV 93.9 MCH 29.4 MCHC 31.4 L RDW 12.9 Plt Count 155 MPV 11.4 H Immature Gran % (Auto) 0.3 Neut % (Auto) 73.4 H Lymph % (Auto) 15.6 L [place] % (Auto) 10.1 H Eos % (Auto) 0.4 Baso % (Auto) 0.2 Lymph # (Auto) 1.44 [place] # (Auto) 0.9 H Eos # (Auto) 0.0 Baso # (Auto) 0.0 Abs Immat Gran (auto) 0.03 Absolute Neuts (auto) 6.8 H Absolute Nucleated RBC 0.000 Nucleated RBC % 0.0 Sodium 139 Potassium 4.2 Chloride 106 Carbon Dioxide 29 Anion Gap 4 BUN 21 H Creatinine 0.80 Estim Creat Clear Calc 68 Estimated GFR > 60 Glucose 151 H Calcium 9.0 Magnesium 2.2 Total Bilirubin 0.6 AST 26 ALT 10 Alkaline Phosphatase 59 Total Protein 6.0 L Albumin 3.4 L Discharge Plan Discharge Attending physician on discharge: Ayaan Ibrahim Consulting providers: Anastacia Bass; Kyle Haynes Discharging Clinician: Carlos Manuel Ibrahim
--- NOTE | 2023-11-11 11:40 | PM.IMPN ---
Progress Note: A&P Assessment and Plan (1) Osteoarthritis of left hip: Qualifiers: Osteoarthritis type: primary Qualified Code(s): M16.12 - Unilateral primary osteoarthritis, left hip Code(s): M16.12 - Unilateral primary osteoarthritis, left hip Status: Acute Assessment and Plan: Status post left total hip arthroplasty 11/09/23.? Continue PT OT as ordered Pain medication and DVT prophylaxis per ortho (2) Urinary retention: Code(s): R33.9 - Retention of urine, unspecified Status: Acute Assessment and Plan: >1 L postoperative urinary retention Caslte catheter placed today with 1200 cc urine output Will begin tamsulosin Follow-up with Urology as an outpatient for voiding trial (3) Urge urinary incontinence: Code(s): N39.41 - Urge incontinence Status: Acute Assessment and Plan: Currently on Myrbetriq which we will discontinue given his urinary retention (4) Hyperlipidemia: Code(s): E78.5 - Hyperlipidemia, unspecified Status: Acute Assessment and Plan: continue home medication (5) Essential hypertension: Code(s): I10 - Essential (primary) hypertension Status: Acute Assessment and Plan: continue home medication Subjective Date/time seen: 11/11/23 11:40 Interval history: Patient doing well today. He has not had bowel movement in a couple days. Will plan on doing an enema today. Patient has been accepted [facility]. He is not having any abdominal pain associated with his constipation. he can continue constipation treatment at [facility] for they are medically equip to handle this. He is okay to discharge per hospitalist team. Exam Narrative: GENERAL: Comfortable, no acute distress HENMT: moist mucous membranes EYES: EOM intact b/l NECK: no lymphadenopathy RESPIRATORY: clear to auscultation, no increased respiratory effort CARDIO: Regular rate and rhythm GI: soft, nontender, bowel sounds present SKIN/EXTREMITIES: no rashes, no edema, no redness or tenderness NEURO: PROM intact, answers questions appropriately, A&O x4 Objective Data Vital Signs Vital Signs: Vital Signs - 24 hr 11/10/23 12:00 11/10/23 12:00 11/10/23 16:00 Temperature 97.0 F L Pulse Rate 87 90 82 Respiratory Rate 18 Blood Pressure 126/54 L Pulse Oximetry 99 Oxygen Delivery 11/10/23 20:45 11/10/23 20:00 11/11/23 00:00 Temperature 98.1 F Pulse Rate 82 84 90 Respiratory Rate 16 Blood Pressure 125/59 L Pulse Oximetry 97 Oxygen Delivery 11/11/23 04:00 11/11/23 05:16 11/11/23 09:28 Temperature 97.8 F Pulse Rate 86 81 Respiratory Rate 16 Blood Pressure 138/63 Pulse Oximetry 99 Oxygen Delivery Room Air Intake/Output Intake/Output: Intake & Output 11/08/23 11/09/23 11/10/23 11/11/23 23:59 23:59 23:59 23:59 Intake Total 1390 590 240 Output Total 2650 1200 Balance 4870 -3171 -100 Meds/Results Medications: Active Medications Generic Name Dose Route Start Last Admin Trade Name Cliffq PRN Reason Stop Dose Admin Acetaminophen 1,000 mg 11/09/23 12:33 11/11/23 05:40 Acetaminophen 500 Mg Tablet PO 1,000 mg Q6HR CHEN Administration Apixaban 2.5 mg 11/10/23 09:00 11/11/23 09:29 Apixaban 2.5 Mg Tablet PO 2.5 mg Q12HR CHEN Administration Aspirin 81 mg 11/10/23 08:00 11/11/23 09:28 Aspirin 81 Mg Chewable Tablet PO 81 mg DAILY@0800 CHEN Administration Cefdinir 300 mg 11/10/23 09:00 11/11/23 09:29 Cefdinir 300 Mg Capsule PO 300 mg Q12HR CHEN Administration Celecoxib 100 mg 11/10/23 08:00 11/11/23 09:29 Celecoxib 100 Mg Capsule PO 100 mg DAILY@0800 CHEN Administration Dextrose 12.5 gm 11/09/23 11:21 Dextrose 50% 25 Gm/50 Ml Syringe IV PUSH PRN PRN Hypoglycemia Protocol Glucagon 1 mg 11/09/23 11:21 Glucagon For Inj 1 Mg Vial IM PRN PRN Hypoglycemia Protocol Glucose 15 gm 11/09/23
[2023-11-11 12:00] VITALS: PULSE 66
--- NOTE | 2023-11-11 13:05 | WPDUROPN2 ---
Progress Note: A&P Assessment and Plan (1) Urinary retention: Code(s): R33.9 - Retention of urine, unspecified Status: Acute Assessment and Plan: >1 L postoperative urinary retention Kim catheter placed 10/21/23 with 1200 cc urine output Started on tamsulosin Limit narcotics and manage constipation Plan for void trial in 5-7 days at [facility]. If unsuccessful, recommend follow up in the office (2) Urge urinary incontinence: Code(s): N39.41 - Urge incontinence Status: Acute Assessment and Plan: Maintained on Myrbetriq which was discontinued given his urinary retention Subjective Subjective Date/Time Seen: 11/11/23 13:05 Interval history: Tanvir is doing well today. Reports no issues with kim catheter which is draining clear yellow urine. WBC normalized. Creatinine remains stable. Vital signs are stable and he is afebrile. Review of Systems Review of Systems: All systems reviewed & are unremarkable except as noted in HPI and below Exam Narrative: General: Awake, alert, comfortable, no acute distress HEENT: Normocephalic, atraumatic, sclerae anicteric Respiratory: Normal respiratory effort, no accessory muscle use Abdomen: Nondistended, soft, nontender : kim catheter draining clear yellow urine Skin: Normal coloration, warm and dry Neurologic: No focal neuro deficits noted Psychiatric: Appropriate mood and affect, judgment and insight intact Objective Data Vital Signs Vital Signs: Vital Signs - 24 hr 11/10/23 16:00 11/10/23 20:45 11/10/23 20:00 Temperature 98.1 F Pulse Rate 82 82 84 Respiratory Rate 16 Blood Pressure 125/59 L Pulse Oximetry 97 Oxygen Delivery 11/11/23 00:00 11/11/23 04:00 11/11/23 05:16 Temperature 97.8 F Pulse Rate 90 86 81 Respiratory Rate 16 Blood Pressure 138/63 Pulse Oximetry 99 Oxygen Delivery 11/11/23 09:28 Temperature Pulse Rate Respiratory Rate Blood Pressure Pulse Oximetry Oxygen Delivery Room Air Intake/Output Intake/Output: Intake & Output 11/08/23 11/09/23 11/10/23 11/11/23 23:59 23:59 23:59 23:59 Intake Total 1390 590 240 Output Total 2650 1200 Balance 1390 -2060 -960 Meds/Results Medications: Active Medications Generic Name Dose Route Start Last Admin Trade Name Freq PRN Reason Stop Dose Admin Acetaminophen 1,000 mg 11/09/23 12:33 11/11/23 12:11 Acetaminophen 500 Mg Tablet PO 1,000 mg Q6HR CHEN Administration Apixaban 2.5 mg 11/10/23 09:00 11/11/23 09:29 Apixaban 2.5 Mg Tablet PO 2.5 mg Q12HR CHEN Administration Aspirin 81 mg 11/10/23 08:00 11/11/23 09:28 Aspirin 81 Mg Chewable Tablet PO 81 mg DAILY@0800 CHEN Administration Cefdinir 300 mg 11/10/23 09:00 11/11/23 09:29 Cefdinir 300 Mg Capsule PO 300 mg Q12HR CHEN Administration Celecoxib 100 mg 11/10/23 08:00 11/11/23 09:29 Celecoxib 100 Mg Capsule PO 100 mg DAILY@0800 CHEN Administration Dextrose 12.5 gm 11/09/23 11:21 Dextrose 50% 25 Gm/50 Ml Syringe IV PUSH PRN PRN Hypoglycemia Protocol Glucagon 1 mg 11/09/23 11:21 Glucagon For Inj 1 Mg Vial IM PRN PRN Hypoglycemia Protocol Glucose 15 gm 11/09/23 11:21 Glucose Oral Gel 15 Gm Of Glucse In 37.5 Gm Tube PO PRN PRN Hypoglycemia Protocol Losartan Potassium 100 mg 11/10/23 09:00 11/11/23 09:29 Losartan Potassium 100 Mg Tablet PO 100 mg DAILY CHEN Administration Lovastatin 40 mg 11/10/23 09:00 11/11/23 09:28 Lovastatin 20 Mg Tablet PO 40 mg DAILY CHEN Administration Morphine Sulfate 1 mg 11/09/23 12:33 Morphine Sulfate (*Crx) 2 Mg/Ml Inj IV PUSH Q1H PRN Pain Rated 7-10 Multivitamins Therapeutic 1 tablet 11/10/23 09:00 11/11/23 09:29 Multivitamins Therapeutic Tab (*Bkc) PO 1 tablet DAILY CHEN Administration Naloxone HCl 0.1 mg 11/09/23 12:33 Naloxone Hcl 0
[2023-11-11 16:00] VITALS: PULSE 71
== END 2023-11-11 17:00 | DRG 470 ==
LOC: ANHSURGERY 16:22 → ANH3MEDSUR 16:22
PROVIDERS: Internal Medicine; Admitting Provider Orthopaedic Surgery; PCP Internal Medicine; Visit Provider Orthopaedic Surgery
PROC: 0SRB04A Replacement of Left Hip Joint with Ceramic on Polyethylene Synthetic Substitute, Uncemented, Open Approach (ICD-10-PCS; CPT 27130; principal; 2023-11-09 07:30)
DX: M16.12 Unilateral primary osteoarthritis, left hip (principal); I10 Essential (primary) hypertension; E78.5 Hyperlipidemia, unspecified; E11.9 Type 2 diabetes mellitus without complications; N40.0 Benign prostatic hyperplasia without lower urinary tract symptoms; N99.89 Other postprocedural complications and disorders of genitourinary system; R33.9 Retention of urine, unspecified; Z79.82 Long term (current) use of aspirin; Z95.0 Presence of cardiac pacemaker
CPT/HCPCS: 36415; 73501; 80048; 80053; 83735; 85025; 97110; 97116; 97161; 97165; 97530; 97535; 99199; A9270; C1776; J0171; J0690; J1100; J1885; J2270; J2371; J2405; J2704; J2795; J3010; J3370; J7030; J7120

== ENCOUNTER 2023-11-24 09:57 | Outpatient (CLI) | payer MEDICARE, SELFPAY ==
[2023-11-24 10:29] LABS: Basophils Absolute Auto 0.03 K/mm3 (0.00-0.10); Basophils Percent Auto 0.4 % (0.0-1.0); Eosinophils Absolute Auto 0.12 K/mm3 (0.02-0.50); Eosinophils Percent Auto 1.5 % (1.0-6.0); Hematocrit 34.3 % (37.0-46.0); Hemoglobin 10.8 g/dL (12.4-15.3); Immature Granulocyte Absolute 0.03 K/mm3 (0.00-0.00); Immature Granulocyte Percent A 0.4 % (0.0-0.0); Lymphocytes Absolute Auto 1.52 K/mm3 (1.10-4.50); Lymphocytes Percent Auto 18.9 % (18.0-42.0); Mean Corpuscular HGB Conc 31.5 g/dL (32-36); Mean Platelet Volume 10.3 fl (8.7-11.0); Monocytes Absolute Auto 0.53 K/mm3 (0.10-0.90); Monocytes Percent Auto 6.6 % (2.0-11.0); Neutrophils Absolute Auto 5.82 K/mm3 (1.70-7.20); Neutrophils Percent Auto 72.2 % (50.0-70.0); Platelet Count Result 370 K/mm3 (150-420); Red Blood Count 3.73 M/mm3 (4.70-6.10); Red Cell Distribution Width 12.6 % (11.6-14.4); White Blood Count 8.1 K/mm3 (4.8-10.8)
[2023-11-24 11:13] LABS: Alanine Aminotransferase 29 U/L (16-63); Alkaline Phosphatase 93 U/L (46-116); Anion Gap 9 mmol/L (4-12); Aspartate Amino Transferase 22 U/L (15-37); Bilirubin,Total 0.3 mg/dL (0.00-1.00); Blood Urea Nitrogen 26 mg/dL (7-18); Carbon Dioxide 29 mmol/L (21-32); Chloride 102 mmol/L (98-108); Estimated Glomerular Filt Rate 59; Ferritin 336 ng/mL (26-388); Glucose 166 mg/dL (70-99); Iron 41 ug/dL (65-175); NT Pro B Type Natriuretic Pept 1049 pg/mL (0-450); Osmolality Calculated 298 mOsm/kg (285-295); Potassium 5.2 mmol/L (3.5-5.1); Sodium 140 mmol/L (136-145); Total Protein 6.1 g/dL (6.4-8.2)
== END 2023-11-24 09:58 | disposition home or self-care (01) ==
LOC: CHSLAB 09:59
PROVIDERS: PCP Internal Medicine; Visit Provider Internal Medicine
DX: D64.9 Anemia, unspecified (principal); I10 Essential (primary) hypertension; R60.9 Edema, unspecified; I50.9 Heart failure, unspecified
CPT/HCPCS: 36415; 80053; 82728; 83540; 83880; 85025

== ENCOUNTER 2023-12-24 11:08 | Outpatient (CLI) | payer MEDICARE, SELFPAY ==
[2023-12-24 11:29] LABS: Basophils Absolute Auto 0.04 K/mm3 (0.00-0.10); Basophils Percent Auto 0.5 % (0.0-1.0); Eosinophils Absolute Auto 0.22 K/mm3 (0.02-0.50); Eosinophils Percent Auto 2.5 % (1.0-6.0); Hemoglobin 11.1 g/dL (12.4-15.3); Immature Granulocyte Absolute 0.03 K/mm3 (0.00-0.00); Immature Granulocyte Percent A 0.3 % (0.0-0.0); Lymphocytes Absolute Auto 1.55 K/mm3 (1.10-4.50); Lymphocytes Percent Auto 17.5 % (18.0-42.0); Mean Corpuscular HGB Conc 30.8 g/dL (32-36); Mean Corpuscular Hemoglobin 28.4 pg (27.0-31.0); Mean Corpuscular Volume 92.1 fL (78.0-102.0); Mean Platelet Volume 9.9 fl (8.7-11.0); Monocytes Absolute Auto 0.61 K/mm3 (0.10-0.90); Monocytes Percent Auto 6.9 % (2.0-11.0); Neutrophils Absolute Auto 6.43 K/mm3 (1.70-7.20); Neutrophils Percent Auto 72.3 % (50.0-70.0); Platelet Count Result 252 K/mm3 (150-420); Red Blood Count 3.91 M/mm3 (4.70-6.10); Red Cell Distribution Width 12.3 % (11.6-14.4); White Blood Count 8.9 K/mm3 (4.8-10.8)
[2023-12-24 12:33] LABS: Alanine Aminotransferase 25 U/L (16-63); Albumin Level 3.3 g/dL (3.4-5.0); Alkaline Phosphatase 111 U/L (46-116); Anion Gap 8 mmol/L (4-12); Aspartate Amino Transferase 19 U/L (15-37); Bilirubin,Total 0.3 mg/dL (0.00-1.00); Blood Urea Nitrogen 28 mg/dL (7-18); Calcium 8.8 mg/dL (8.5-10.1); Carbon Dioxide 29 mmol/L (21-32); Chloride 104 mmol/L (98-108); Estimated Glomerular Filt Rate > 60; Ferritin 211 ng/mL (26-388); Glucose 126 mg/dL (70-99); Iron 32 ug/dL (65-175); Osmolality Calculated 299 mOsm/kg (285-295); Potassium 4.5 mmol/L (3.5-5.1); Sodium 141 mmol/L (136-145); Total Protein 6.4 g/dL (6.4-8.2)
== END 2023-12-24 11:09 | disposition home or self-care (01) ==
LOC: CHSLAB 11:10
PROVIDERS: PCP Internal Medicine; Visit Provider Internal Medicine
DX: D50.9 Iron deficiency anemia, unspecified (principal); D53.0 Protein deficiency anemia
CPT/HCPCS: 36415; 80053; 82728; 83540; 85025

== ENCOUNTER 2024-02-23 14:48 | Outpatient (CLI) | payer MEDICARE, SELFPAY ==
[2024-02-23 15:01] LABS: Hematocrit 39.1 % (37.0-46.0); Hemoglobin 12.7 g/dL (12.4-15.3); Mean Corpuscular HGB Conc 32.5 g/dL (32-36); Mean Corpuscular Hemoglobin 28.9 pg (27.0-31.0); Mean Corpuscular Volume 89.1 fL (78.0-102.0); Mean Platelet Volume 10.1 fl (8.7-11.0); Platelet Count Result 186 K/mm3 (150-420); Red Blood Count 4.39 M/mm3 (4.70-6.10); Red Cell Distribution Width 13.3 % (11.6-14.4); White Blood Count 7.1 K/mm3 (4.8-10.8)
[2024-02-23 19:19] LABS: Ferritin 153 ng/mL (26-388); Iron 57 ug/dL (65-175)
== END 2024-02-23 14:49 | disposition home or self-care (01) ==
LOC: CHSLAB 14:50
PROVIDERS: PCP Internal Medicine; Visit Provider Internal Medicine
DX: D50.9 Iron deficiency anemia, unspecified (principal)
CPT/HCPCS: 36415; 82728; 83540; 85027

== ENCOUNTER 2024-05-05 12:07 | Outpatient (CLI) | payer MEDICARE, OTHER, SELFPAY ==
--- NOTE | ~2024-05-05 | US_ITS ---
EXAMINATION: US renal BI DATE: 05/05/2024 12:38 INDICATION: Follow-up renal cyst TECHNIQUE: Multiple ultrasound grayscale images of the kidneys were obtained. COMPARISON: 07/05/[address] dated 07/17/2023 FINDINGS: The right kidney measures 10.7 x 5.5 x 6.3 cm. The left kidney measures 12.0 x 5.1 x 6.0 cm. The kidn eys demonstrate normal echogenicity. There is a 2.1 cm slightly hypoechoic lesion at the mid left kid marcia which is without posterior acoustic enhancement or evident correlate on the prior CT raising conc renay for neoplasm. There is no hydronephrosis in either kidney. No stones identified. There is mild t rabeculation along the bladder mucosa which can be seen in the setting of chronic outlet obstruction or neurogenic bladder. IMPRESSION: 1. Indeterminate 2.1 cm hypoechoic lesion at the interpolar left kidney without posterior acoustic e nhancement to suggest a cystic lesion without evident correlate on the prior CT suggesting soft tissu e density such as neoplasm. Would recommend further evaluation with pre and postcontrast MRI or CT. Reviewed, dictated and finalized at location A. IMPRESSION: 1. Indeterminate 2.1 cm hypoechoic lesion at the interpolar left kidney withou t posterior acoustic enhancement to suggest a cystic lesion without evident cor relate on the prior CT suggesting soft tissue density such as neoplasm. Would r ecommend further evaluation with pre and postcontrast MRI or CT.
== END 2024-05-05 12:08 | disposition home or self-care (01) ==
LOC: CHSIMG 12:09
PROVIDERS: PCP Internal Medicine; Visit Provider Internal Medicine
DX: N28.1 Cyst of kidney, acquired (principal)
CPT/HCPCS: 76775

== ENCOUNTER 2024-05-09 08:04 | Outpatient (CLI) | payer MEDICARE, OTHER, SELFPAY ==
--- NOTE | ~2024-05-09 | CT_ITS ---
CT of the Abdomen: Indication: Left kidney mass Technique: 2.5 mm axial scans were obtained through the abdomen prior to and following intravenous a dministration of 100 cc of Omnipaque 350. Dose reduction technique was used on this scan by utilizing automated exposure control and iterative reconstruction technique. The dose-length product (DLP) was 1132.81 mGy-cm. Findings: Scans through the lung bases are unremarkable. The liver, spleen, pancreas, gallbladder, and adrenal glands are within normal limits. There is mild bilateral hydroureteronephrosis. No renal mass evident. There are atherosclerotic calcifications of t he aorta. No lymphadenopathy. Visualized bowel loops are unremarkable. No ascites. Impression: Mild bilateral hydronephrosis. No renal mass evident. Reviewed, dictated and finalized at location . Impression: Mild bilateral hydronephrosis. No renal mass evident.
[2024-05-09 08:39] LABS: Estimated Glomerular Filt Rate > 60
== END 2024-05-09 08:05 | disposition home or self-care (01) ==
LOC: CHSIMG 08:07
PROVIDERS: PCP Internal Medicine; Visit Provider Internal Medicine
DX: N28.89 Other specified disorders of kidney and ureter (principal); N13.30 Unspecified hydronephrosis
CPT/HCPCS: 74170; Q9967

== ENCOUNTER 2024-05-13 09:41 | Outpatient (CLI) | payer MEDICARE, SELFPAY | END 2024-05-13 09:42 | disposition home or self-care (01) | LOC: CHSLAB 09:43 | PROVIDERS: PCP Internal Medicine; Visit Provider Internal Medicine | DX: N40.1 Benign prostatic hyperplasia with lower urinary tract symptoms (principal); Z12.5 Encounter for screening for malignant neoplasm of prostate | CPT/HCPCS: 36415; 84153; G0103 ==

== ENCOUNTER → 2024-06-07 11:23 | Outpatient (REF) | payer MEDICARE, OTHER, SELFPAY | LOC: ANHLAB 11:23 | PROVIDERS: PCP Internal Medicine; Visit Provider Plastic Surgery | DX: L72.3 Sebaceous cyst (principal) | CPT/HCPCS: 88305 ==

== ENCOUNTER 2024-09-30 08:36 | Outpatient (CLI) | payer MEDICARE, SELFPAY ==
--- OUTSIDE RECORDS SUMMARY | 2024-09-30 08:58 | XMS_ITS | Clinical Summary ---
Author Organization [facility] Address [id number] [address] Phone Care Team Providers Care Behavioral Health Care Manager Name Role Phone Casandra Alvarenga MD Primary Care Provider [phone] Medications polyethylene glycol (MIRALAX) Powder Use entire 255g bottle with 64oz of clear liquid as directed for colonoscopy prep. 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 Gender Identity Not on file Sexual Orientation Not on file Plan of Treatment Health Maintenance Due Date Last Done Comments Hepatitis C Virus (HCV) Screening 1940 TdaP Immunization 1940 Pneumococcal Immunization (5 0+ years) (1 of 1 - PCV) 1991 Zoster Immunization (1 of 2) 1991 Respiratory Syncytial Virus (RSV) Immunization (Adult) (1 - 1-dose 75+ series) 02/22/2016 Influenza Immunization (#1) 2024 SARS-COV-2 Immunization ( - 2023-25 season) 2024 Hepatitis B Immunization Aged Out No longer eligible based on patient's age to complete this topic Meningococcal Immunization (ACWY) Aged Out No longer eligible based on patient's age to complete this topic Rotavirus Immunization Aged Out No lo nger eligible based on patient's age to complete this topic Insurance MEDICARE Care Teams Behavioral Health Care Manager Relationship Specialty Start Date End Date Casandra Alvarenga MD [address] [place] [address] PCP - General Internal Medicine 05/28/16
--- OUTSIDE RECORDS SUMMARY | 2024-09-30 08:58 | XMS_ITS | Data Portability ---
Author Organization [place] [facility], Main Office Address [address] [place] [address] Care Team Providers Care Innovation Analyst Name Role Phone ELEONORA SARAVIA Primary Care Provider ELEONORA SARAVIA Referring Provider Assessment Encounter Date Assessment Date Assessment LastModified by Organization Details LastModified Time 08/12/2023 08/12/2023 Impression: Patient has severe left hip osteoarthritis and his symptoms have been severe over the last 3 months. 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 He is suffering quite a bit with this and would like to proceed with hip replacement surgery. I have given him the Ortho info handout on total hip arthroplasty as well as the anterior approach booklet. I recommended that he go to physical therapy to learn how to use a cane properly in the right hand and they can help him with adaptive aids in putting sock and shoe on when she is having great difficulty with. 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 I have discussed with him that he can see 1 of the other surgeons at [facility] that does hip replacement such as Dr. Penny and Dudley. If he wants to wait I can see him in the week of October and try to schedule the surgery as soon as possible. I would recommend that he make an appointment with Dr. Huang as he will need to have a cardiac risk assessment and cardiac clearance before proceeding with total hip arthroplasty. 45 minutes were spent in total care this patient with more than half the time spent in [id number] care. [email or web address] Not available 08/16/2023 15:29:08 Plan of Treatment Reminders Order Date Submit Date Provider Last Modified By Organization Details Last Modified Time Details Appointments None recorded. Lab None recorded. Referral None recorded. Procedures None recorded. Surgeries None recorded. Imaging XR, hip + pelvis, unilateral 2023 024 [email or web address] [facility] [place], [address], [place], [address], 11:35:14 Medication Orders None recorded. Patient TargetsNo targets recorded. Patient InstructionsNo instructions recorded. Reason for Referral None Reported. Results Created Date Observation Date Name Description Value Unit Range Abnormal Flag Note LastModifiedBy Organization Detail LastModifiedTime 07/23/1907/17/2023 CT, hip, w/o contr ast No observ ation record ed. [email or web address] Not Available 10/2023 14:09:46 07/23/1907/17/2023 CT, lumba r spine , w/o contr ast No observ ation record ed. [email or web address] Not Available 10/2023 14:09:46 08/12/19 XR, hip + pelvi s, unila teral No observ ation record ed. [email or web address] [facility] [place] [address], [place], [address], 08/16/2023 15:22:36 Result Notes None recorded. Problems Name Problem SNOMED Code Status Onset Date Resolution Date Notes Provider Name and Address Organization Details Recorded Time Pain of left hip joint [id number] Active 2023 AYAN Wesley [employer] 09:16:44 Problem Notes None recorded. Procedures Surgical History Date Name Laterality Status Provider Name and Address Organization Details Recorded Time Pacemaker completed AYAN Wesley [employer] 08/12/2023 10:53:21 Imaging Results Imaging Date Name Status LastModified by Organiz ation Details LastModified Time 07/17/2023 CT, hip, w/o contrast completed Information not available 07/23/2023 14:09:46 07/17/2023 CT, lumbar spine, w/o contrast completed Information not available 07/23/2023 14:09:46 08/12/2023 XR, hip + pelvis, unilateral completed [email or web address] [facility] [place] [address], [place], [address], 08/16/2023 15:22:36 Procedure Notes None recorded. Medical Equipment None Reported. Allergies No known drug allergies Medications Name Sig Start Date Stop Date Status Note LastModified by Organization Details LastModified Time carvedilol 6.25 mg tablet 08/12 completed Not Available Not Available Not Available lovastatin 40 mg tablet active Not Available Not Available Not Available tramadol 50 mg tablet Take 1 tablet every 6 hours by oral route. active Not Available Not Available No t Available carvedilol 3.125 mg tablet 08/12 completed Not Available Not Available Not Available losartan 100 mg-hydrochlo rothiazide 12.5 mg tablet 2023 active Not Available Not Available Not Avai lable Myrbetriq 25 mg tablet,exten ded release active Not Available Not Available Not Available Vitals Date Recorded Body height Body mass index (BMI) Body weight Provider Name and Address Organization Details Last Updated DateTime 08/12/2023 179.07 cm 27.6 kg/m2 20327.51 g Calli Barrera [facility] 08/12/2023 10:42:46 Social History Question Answer Notes LastModified by Organizat ion Details LastModified Time Tobacco Smoking Status Never Smoker AYAN Wesley, [facility] 08/12/2023 10:53:13 What Is Your Level Of Alcohol Consumption? Occasional Information not available 08/12/2023 Sex: Unknown Functional Status None recorded. Mental Status None recorded. Family History Nothing Reported. Medical History Condition Response URINARY/BLADDER/KIDNEY PROBLEMS Y ARTHRITIS Y DIABETES, TYPE Y HEART DISEASE/HEART PROBLEMS Y Past Encounters Encounter ID Performer Location Encounter Start Date Encounter Closed Date Diagnosis/Indication Diagnosis SNOMED-CT Code Diagnosis ICD10 Code Diagnosis Note [id number] Ayaan Ibrahim MD [facility] [place] [address] [place] [id number] 08/12/2023 08:38:28 08/17/2023 11:35:14 Pain of left hip joint [id number] 44992 M25.552 Health Concerns Section Related Observation LastModified by Organization Detai ls LastModified Time None Recorded Concern Status LastModified by Organization Details LastModified Time None Recorded Advance Directives Directive None Recorded Payers Encounter Date Sequence Insurance Name Policy Number Policy Bray Covered Member ID Bray Member ID Guarantor Name 08/12/2023 1 [place] Tanvir Evans [place] [id number] Tanvir Singh 08/12/2023 2 [employer] [place] (MEDICARE SUPPLEMENT) Tanvir Evans [place] [id number] Tanvir Singh Notes Date Note Type Note Provider Name and Address Organization Details Recorded Time 08/12/2023 text/html patient is an 83-year-old gentleman referred by Dr. Saravia for evaluation of his left hip arthritis. He started having significant pain in the left hip approximately 3 months ago. He states that prior to 3 months ago his symptoms were minimal. He noticed that he had an issue with a hip but it did not bother him significantly. His symptoms became severe he states 3 days after a COVID injection.He was complaining of pain lateral hip buttock and the thigh. Trying to wash his foot and put his socks on became very difficult. It bothers him with walking primarily. He denies any numbness or tingling. He does walk with a limp. He can not walk very far because of the pain. He has been taking Aleve on occasion and over the last 3 weeks he has been taking tramadol and Tylenol. He had a cortisone shot in the left hip 2 months ago under fluoroscopic guidance at [facility]. He had no relief it any time even immediately after the injection. He did have a cortisone shot on July 27 in his left knee which did help the left knee pain that had developed just recently. 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 He had a CT scan lumbar spine the same day 07/11/2024 which showed moderate diffuse spondylosis mild central canal stenosis multilevel. Patient denies any numbness or tingling. He lives alone. His 6 years ago. He is active. 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 The He notes that when he walks any distance he develops moderately severe pain lateral anterolateral hip and anterior thigh. His past surgical history is significant for a pacemaker placement in the left pectoral region 2 months ago. He has not tried a cane as yet. He thought he was supposed to use it in left hand and new he should not be using his left hand with a recent pacemaker placement and uses a sling. 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 He does take a baby aspirin daily. His other medications include lovastatin, losartan hydrochlorothiazide, Myrbetriq, and tramadol. Patient has history of urinary frequency. He is taking myrbetriq To treat overactive bladder. Ayaan Ibrahim MD [address] [place] [address], [place] [address], [place], [address], [place] [facility] 08/16/2023 15:31:01
[2024-09-30 09:03] LABS: Hematocrit 42.1 % (37.0-46.0); Hemoglobin 13.5 g/dL (12.4-15.3); Mean Corpuscular HGB Conc 32.1 g/dL (32-36); Mean Corpuscular Hemoglobin 29.3 pg (27.0-31.0); Mean Corpuscular Volume 91.3 fL (78.0-102.0); Mean Platelet Volume 10.2 fl (8.7-11.0); Platelet Count Result 163 K/mm3 (150-420); Red Blood Count 4.61 M/mm3 (4.70-6.10); Red Cell Distribution Width 12.7 % (11.6-14.4); White Blood Count 6.2 K/mm3 (4.8-10.8)
[2024-09-30 09:10] LABS: Add Urine Microscopic? NO; Appearance Urine Clear (Clear); Bilirubin Urine Negative (Negative); Blood Urine Negative (Negative); Color Urine Light Yellow (Yellow); Glucose Urine UA Negative (Negative); Ketones Urine Negative (Negative); Leukocyte Esterase Ur Negative (Negative); Nitrate Urine Negative (Negative); Protein Urine Negative (Negative); Urobilinogen Urine 0.2 mg/dL (0.2-1.0)
[2024-09-30 09:40] LABS: Hemoglobin A1C 6.5 % (<5.7)
[2024-09-30 09:55] LABS: Alanine Aminotransferase 32 U/L (16-63); Albumin Level 4.1 g/dL (3.4-5.0); Alkaline Phosphatase 81 U/L (46-116); Anion Gap 8 mmol/L (4-12); Aspartate Amino Transferase 25 U/L (15-37); Bilirubin,Total 0.7 mg/dL (0.00-1.00); Blood Urea Nitrogen 28 mg/dL (7-18); Calcium 9.7 mg/dL (8.5-10.1); Carbon Dioxide 30 mmol/L (21-32); Chloride 106 mmol/L (98-108); Cholesterol 147 mg/dL (0-200); Creatine Kinase 193 U/L (39-308); Estimated Glomerular Filt Rate 57; Glucose 132 mg/dL (70-99); HDL Direct 79 mg/dL (40-60); LDL Cholesterol Calculated 62 mg/dL (<130); Osmolality Calculated 305 mOsm/kg (285-295); Potassium 5.5 mmol/L (3.5-5.1); Sodium 144 mmol/L (136-145); Total Protein 6.7 g/dL (6.4-8.2); Triglycerides 29 mg/dL (0-150)
[2024-09-30 11:04] LABS: Creatinine Urine 61.76 mg/dL (40-278); Microalbumin Urine Random < 13.0 mg/L
== END 2024-09-30 08:37 | disposition home or self-care (01) ==
LOC: CHSLAB 08:39
PROVIDERS: PCP Internal Medicine; Visit Provider Internal Medicine
DX: E11.9 Type 2 diabetes mellitus without complications (principal); I10 Essential (primary) hypertension; N39.498 Other specified urinary incontinence
CPT/HCPCS: 36415; 80053; 80061; 81003; 82043; 82550; 83036; 85027

== ENCOUNTER 2025-04-21 09:08 | Outpatient (CLI) | payer MEDICARE, OTHER, SELFPAY ==
--- OUTSIDE RECORDS SUMMARY | 2025-04-21 09:18 | XMS_ITS | Clinical Summary ---
Author Organization [facility] Address [address] [place], [address] [address] Phone Care Team Providers Care Art Teacher Name Role Phone Casandra Alvarenga MD Primary Care Provider [phone] Medications polyethylene glycol (MIRALAX) Powder Use entire 255g bottle with 64oz of clear liquid as directed for colonoscopy prep. 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 Gender Identity Not on file Sexual Orientation Not on file Plan of Treatment Health Maintenance Due Date Last Done Comments Hepatitis C Virus (HCV) Screening 1940 TdaP Immunization 1940 Pneumococcal Immunization (5 0+ years) (1 of 1 - PCV) 1991 Zoster Immunization (1 of 2) 1991 Respiratory Syncytial Virus (RSV) Immunization (Adult) (1 - 1-dose 75+ series) 02/22/2016 Influenza Immunization (#1) 2025 SARS-COV-2 Immunization ( - season) 2025 Hepatitis B Immunization Aged Out No longer eligible based on patient's age to complete this topic Human Papillomavirus (HPV) Immunization Aged Out No longer eligible b ased on patient's age to complete this topic Meningococcal Immunization (ACWY) Aged Out No longer eligible based on patient's age to complete this topic Rotavirus Immunization Aged Out No lo nger eligible based on patient's age to complete this topic Insurance MEDICARE Care Teams Art Teacher Relationship Specialty Start Date End Date Casandra Alvarenga MD [address] [place] [address] PCP - General Internal Medicine 05/28/16
[2025-04-21 09:20] LABS: Add Urine Microscopic? NO; Appearance Urine Clear (Clear); Glucose Urine UA Negative (Negative); Leukocyte Esterase Ur Negative (Negative); Nitrate Urine Negative (Negative); Specific Grav Ur 1.020 (1.010-1.020)
[2025-04-21 09:45] LABS: Alanine Aminotransferase 25 U/L (6-50); Albumin Level 4.7 g/dL (3.5-5.1); Alkaline Phosphatase 74 U/L (38-126); Anion Gap 11 mmol/L (4-12); Aspartate Amino Transferase 34 U/L (17-59); Bilirubin,Total 0.9 mg/dL (0.2-1.3); Blood Urea Nitrogen 30 mg/dL (9-20); Calcium 10.2 mg/dL (8.4-10.2); Carbon Dioxide 26 mmol/L (22-30); Chloride 104 mmol/L (98-107); Cholesterol 180 mg/dL (0-200); Creatine Kinase 112 U/L (55-170); Estimated Glomerular Filt Rate 49; Glucose 173 mg/dL (65-110); HDL Direct 77 mg/dL; Osmolality Calculated 302 mOsm/kg (285-295); Potassium 5.0 mmol/L (3.4-5.0); Sodium 141 mmol/L (137-145); Total Protein 7.7 g/dL (6.3-8.2); Triglycerides 83 mg/dL (<150)
[2025-04-21 09:50] LABS: MALB Creatinine Ratio 37.6 mg/g (0-30)
[2025-04-21 09:52] LABS: NT Pro B Type Natriuretic Pept 1010 pg/mL (19.9-100)
[2025-04-21 09:54] LABS: Hemoglobin A1C 6.8 % (<5.7)
== END 2025-04-21 09:09 | disposition home or self-care (01) ==
PROVIDERS: PCP Internal Medicine; Visit Provider Internal Medicine
DX: E11.9 Type 2 diabetes mellitus without complications (principal); E78.2 Mixed hyperlipidemia; I44.2 Atrioventricular block, complete; I50.9 Heart failure, unspecified; I11.0 Hypertensive heart disease with heart failure
CPT/HCPCS: 36415; 80053; 80061; 81003; 82043; 82550; 83036; 83880

== ENCOUNTER 2025-06-28 13:04 | Outpatient (CLI) | payer MEDICARE, SELFPAY ==
[2025-06-28 13:57] LABS: Anion Gap 5 mmol/L (4-12); Blood Urea Nitrogen 34 mg/dL (9-20); Calcium 9.4 mg/dL (8.4-10.2); Carbon Dioxide 29 mmol/L (22-30); Chloride 106 mmol/L (98-107); Estimated Glomerular Filt Rate 55; Glucose 102 mg/dL (65-110); Osmolality Calculated 297 mOsm/kg (285-295); Potassium 4.9 mmol/L (3.4-5.0); Sodium 140 mmol/L (137-145)
== END 2025-06-28 13:05 | disposition home or self-care (01) ==
LOC: CHSLAB 13:06
PROVIDERS: PCP Internal Medicine; Visit Provider Internal Medicine
DX: I10 Essential (primary) hypertension (principal)
CPT/HCPCS: 36415; 80048